=== PATIENT | male | born 1965 | race Caucasian/White ===

== ENCOUNTER 2020-02-16 14:32 | Outpatient (REF) | payer OTHER, SELFPAY | END 2020-02-16 14:33 | disposition home or self-care (01) | LOC: HO.LNP 14:32 | PROVIDERS: Visit Provider Internal Medicine | DX: Z20.822 Contact with and (suspected) exposure to COVID-19 (principal) | CPT/HCPCS: U0003 ==

== ENCOUNTER 2020-07-05 11:02 | Outpatient (REF) | payer OTHER, SELFPAY ==
[2020-07-05 12:04] LABS: MANUAL DIFF FLAG NO
[2020-07-05 12:08] LABS: Eosinophils Absolute Auto 0.1 X10*3/uL (0.0-0.4); Hematocrit 44.1 % (42-52); Hemoglobin 15.1 g/dl (14.0-18.0); Imm Gran Abs Auto 0.01 X10*3/uL (0.00-0.03); Imm Gran Pct Auto 0.2 % (0.0-0.4); Lymphocytes Absolute Auto 1.6 X10*3/uL (1.2-4.9); Lymphocytes Percent Auto 39.3 % (20-40); Mean Corpuscular HGB Conc 34.2 g/dl (31.0-36.0); Mean Corpuscular Hemoglobin 32.1 pg (27.0-33.0); Mean Corpuscular Volume 93.6 fL (80-98); Mean Platelet Volume 9.8 fL (9.4-12.4); Monocytes Absolute Auto 0.3 X10*3/uL (0.1-1.2); Monocytes Percent Auto 7.8 % (2-11); Neutrophils Percent Auto 49.7 % (45-73); Platelet Count 254 X10*3/uL (160-400); Red Blood Count 4.71 X10*6/uL (4.60-5.80); Red Cell Distribution Width 11.8 % (11.0-16.0); White Blood Count 4.1 X10*3/uL (4.8-10.8)
[2020-07-05 12:20] LABS: Alanine Aminotransferase 25 U/L (0-40); Albumin Level 4.5 g/dL (3.5-5.0); Alkaline Phosphatase 45 U/L (39-117); Anion Gap 13 (12-20); Aspartate Amino Transferase 17 U/L (5-37); Bilirubin Total 2.9 mg/dL (0.0-1.0); Blood Urea Nitrogen 15 mg/dL (9-16); Calcium 9.8 mg/dL (8.4-10.2); Carbon Dioxide 27 mmol/L (22-29); Chloride 106 mmol/L (96-108); Cholesterol 214 mg/dL; Estimated Glomerular Filt Rate > 60; Glucose Fasting 94 mg/dL (60-99); HDL Cholesterol 46 mg/dL; LDL Cholesterol Calculated 152 mg/dl; Potassium 4.4 mmol/L (3.3-5.1); Sodium 142 mmol/L (135-145); Triglycerides 82 mg/dL
[2020-07-05 12:41] LABS: Prostate Specific Antigen 1.29 ng/mL (<0.05-4.0)
== END 2020-07-05 11:03 | disposition home or self-care (01) ==
LOC: HO.LAB 11:02
PROVIDERS: PCP Internal Medicine; Visit Provider Internal Medicine
DX: Z00.00 Encounter for general adult medical examination without abnormal findings (principal); Z12.5 Encounter for screening for malignant neoplasm of prostate
CPT/HCPCS: 36415; 80053; 80061; 84153; 85025

== ENCOUNTER → 2020-10-13 14:50 | Outpatient (BNVA) | payer OTHER, SELFPAY | PROVIDERS: PCP Internal Medicine; Referring Provider Internal Medicine; Visit Provider Surgery ==

== ENCOUNTER 2020-10-21 06:10 | Day surgery (SDC) | payer OTHER, SELFPAY ==
--- NOTE | 2020-10-20 09:16 | HO.ANESPROP2 ---
Documented by User: Kusum Isaacs NP 10/20/20 09:17 HPI - Anesthesia Eval Consult details Narrative: 55yo M for Hernia Repair Inguinal with mesh PMFSH Active Problems Active Problems: All Active Problems (Updated 10/13/20 @ 15:24 by Alphonse Mancini MD) Right inguinal hernia (Acute) Chronic right hip pain (Acute) Past Medical History Medical History Chronic right hip pain Right inguinal hernia Surgical History Surgical History History of hip surgery Social History Social History Alcohol intake: never Patient Tobacco Use Status: Never used Tobacco Use of substances other than those prescribed or required for medical reasons: No Are you DNR?: No Advance Directives: No Advance Directives Information Provided: Yes Meds Allergies Allergy/AdvReac Type Severity Reaction Status Date / Time Penicillins Allergy Severe Unknown Verified 10/21/20 06:47 amoxicillin Allergy Unknown Verified 10/21/20 06:47 azithromycin Allergy Unknown Verified 10/21/20 06:47 naproxen Allergy Unknown Verified 10/21/20 06:47 Home Medications Medication Instructions Recorded Confirmed Last Taken Type loratadine 10 mg tablet (Claritin) 10 mg PO DAILY 10/13/20 10/13/20 Unknown History Exam Exam Date and Time: October 20, 202016 Pertinent Lab Results Pertinent Lab Results: Laboratory Tests 07/05/20 07/05/20 11:11 11:11 WBC 4.1 L Hgb 15.1 Hct 44.1 Plt Count 254 Sodium 142 Potassium 4.4 Chloride 106 Carbon Dioxide 27 BUN 15 Creatinine 1.00 Assessment and Plan Assessment Anesthesia Assessment: Chart Reviewed Documented by User: Jocelyn Quintero MD 10/21/20 07:21 HPI - Anesthesia Eval Consult details Narrative: 55yo M for Right Inguinal Hernia Repair with mesh PMFSH Past Medical History Medical History Chronic right hip pain Right inguinal hernia Family History Family history of problems with anesthesia: No Surgical History Surgical History History of hip surgery History of Problems with Anesthesia: No Social History Social History Alcohol intake: never Patient Tobacco Use Status: Never used Tobacco Use of substances other than those prescribed or required for medical reasons: No Are you DNR?: No Advance Directives: No Advance Directives Information Provided: Yes Meds Allergies Allergy/AdvReac Type Severity Reaction Status Date / Time Penicillins Allergy Severe Unknown Verified 10/21/20 06:47 amoxicillin Allergy Unknown Verified 10/21/20 06:47 azithromycin Allergy Unknown Verified 10/21/20 06:47 naproxen Allergy Unknown Verified 10/21/20 06:47 Home Medications Medication Instructions Recorded Confirmed Last Taken Type loratadine 10 mg tablet (Claritin) 10 mg PO DAILY 10/13/20 10/13/20 Unknown History Exam Airway Mallampati Class: II TM Dist: >3cm Neck ROM: Full Loose/Missing/Broken Teeth: No Heart: RRR Lungs: CTAB Assessment and Plan Assessment Anesthesia Assessment: Anesthesia Plan Discussed Final Anesthetic Review Family History of Problems with Anesthesia: No History of Problems with Anesthesia: No Final Preanesthetic Review: No Changes in Pt Med Stat, Meds/Allgs Chart Reviewed, Consent Obtained/Reviewed and Anes Risks/Benef Reviewed Patient Risk: Low Procedure Risk: Low Assessment/Block/Sedation in SS: Assess/Block/Sedation-SS Anesthetic Plan Anesthetic Plan: GA Disposition: Standard PACU
--- NOTE | 2020-10-20 11:56 | PC.NURSE ---
spoke to patient to verify medication allergies and reaction. pt stated pcn and amoxicillin allergy with unknown reaction as he has not taken them in a very long time . Preop antibiotic questioned to Dr. Mancini, Cefazolin 2gm IV ordered, per MD wishes to keep planned preop abx as ordered.
[2020-10-21] VITALS (11 sets, daily range): BP systolic 112–131; BP diastolic 65–79; PULSE 44–77; RESP 16–18; TEMP 36.1–36.3; O2SAT 97–100; BMI 23.3
[2020-10-21] MEDS: Lactated Ringers 1,000 ML 100 ML IVCONT (06:46)
--- NOTE | 2020-10-21 07:26 | MHC.SHP ---
Pre-Procedural Eval Section A Date of Service: 10/21/20 Section B Chief Complaint: inguinal hernia Allergies: Allergies Allergy/AdvReac Type Severity Reaction Status Date / Time Penicillins Allergy Severe Unknown Verified 10/21/20 06:47 amoxicillin Allergy Unknown Verified 10/21/20 06:47 azithromycin Allergy Unknown Verified 10/21/20 06:47 naproxen Allergy Unknown Verified 10/21/20 06:47 Plan I have reviewed the history and physical and performed a pertinent physical examination on my patient. No changes have occurred unless specified.
--- NOTE | 2020-10-21 08:00 | HO.ANESPROP2 ---
HPI - Anesthesia Eval Consult details Narrative: 55 yo male patient for Right Inguinal hernia repair with mesh PMFSH Active Problems Active Problems: All Active Problems (Updated 10/13/20 @ 15:24 by Alphonse Mancini MD) Right inguinal hernia (Acute) Chronic right hip pain (Acute) Past Medical History Medical History Chronic right hip pain Right inguinal hernia Family History Family history of problems with anesthesia: No Surgical History Surgical History History of hip surgery History of Problems with Anesthesia: No Social History Social History Alcohol intake: never Patient Tobacco Use Status: Never used Tobacco Use of substances other than those prescribed or required for medical reasons: No Are you DNR?: No Advance Directives: No Advance Directives Information Provided: Yes Meds Allergies Allergy/AdvReac Type Severity Reaction Status Date / Time Penicillins Allergy Severe Unknown Verified 10/21/20 06:47 amoxicillin Allergy Unknown Verified 10/21/20 06:47 azithromycin Allergy Unknown Verified 10/21/20 06:47 naproxen Allergy Unknown Verified 10/21/20 06:47 Active Medications: Current Medications Generic Name Dose Route Start Last Admin Trade Name Amarjitq PRN Reason Stop Dose Admin Acetaminophen 650 mg 10/21/20 07:21 Acetaminophen 325 Mg Tablet PO ONCE PRN Pain, Mild (Pain Scale 1-3) Fentanyl 25 mcg 10/21/20 07:21 Fentanyl Citrate/Pf 100 Mcg/2 Ml Vial IVPUSH Q5M PRN Pain, Moderate (Pain Scale 4-6 Protocol Lactated Ringer's 1,000 mls @ 100 mls/hr 10/21/20 06:00 10/21/20 06:46 Lr IVCONT 100 mls/hr .Q10H MAGNUS Administration Ondansetron HCl 4 mg 10/21/20 07:21 Ondansetron Hcl 4 Mg/2 Ml Vial IVPUSH ONCE PRN Nausea and Vomiting Oxycodone HCl 5 mg 10/21/20 07:21 Oxycodone Hcl Immed Release 5 Mg Tablet PO ONCE PRN Pain, Severe (Pain Scale 7-10) Home Medications Medication Instructions Recorded Confirmed Last Taken Type loratadine 10 mg tablet (Claritin) 10 mg PO DAILY 10/13/20 10/13/20 Unknown History Exam Exam Date and Time: October 21, 2020 0800 Height,Weight and Vital Signs: Height 6 ft Weight 78.018 kg Last Vital Signs Temp 97.3 F 10/21/20 06:20 Pulse 59 10/21/20 06:20 Resp 18 10/21/20 06:20 BP 113/65 10/21/20 06:20 Pulse Ox 100 10/21/20 06:20 Airway Mallampati Class: II TM Dist: >3cm Neck ROM: Full Heart: RRR Lungs: CTAB Assessment and Plan Assessment Anesthesia Assessment: Anesthesia Plan Discussed and Chart Reviewed Final Anesthetic Review Family History of Problems with Anesthesia: No History of Problems with Anesthesia: No NPO: Yes ASA Class: II Final Preanesthetic Review: No Changes in Pt Med Stat, Meds/Allgs Chart Reviewed, Consent Obtained/Reviewed and Anes Risks/Benef Reviewed Patient Risk: Low Procedure Risk: Low Assessment/Block/Sedation in SS: Assess/Block/Sedation-SS Anesthetic Plan Anesthetic Plan: GA Disposition: Standard PACU
--- NOTE | 2020-10-21 08:26 | W.PM.OPN ---
Operative Note Operative Note Date of Service: 10/21/20 Narrative: Preop Diagnosis: Right inguinal hernia Postop diagnosis: Right inguinal hernia, direct Procedure: Repair of right inguinal hernia with mesh Surgeon: Alphonse Mancini MD Inspector Final Assembly Electrical: DENIA Sweet student The patient is a 55-year-old male with a reducible mass on the right groin consistent with a right inguinal hernia. In view of symptoms, he wanted to proceed with repair. He understood the technique of the procedure. He was aware of the risks, benefits, and alternatives He was brought to the operating room and placed supine on table under general anesthesia via laryngeal mask airway. The right groin was prepped and draped in the usual sterile fashion. A surgical time-out was done. The patient received cefazolin 2 g IV preoperatively I infiltrated the planned line of incision using lidocaine 1%. I made a short incision on the skin along an imaginary line from the anterior superior iliac spine to the pubic ramus using blade 15. This was carried down through the full-thickness of the skin and subcutaneous fat using electrocautery until we reached the external oblique aponeurosis. Gently dissect the external oblique aponeurosis bluntly to expose the external ring. I then made incision on the fibers of the external oblique aponeurosis using blade 15 and this was extended inferomedially with an open tipped pair of scissors to connect with the external ring. The inguinal canal was therefore entered. I applied graspers on the edges of the divided external oblique aponeurosis. I bluntly dissected the underside to create space for the mesh. I then visualized the spermatic cord and its contents. I bluntly dissected this until was able to pass a Torito drain around this. The [place] drain was used for retraction. By retracting the spermatic cord, as able to visualize the sac. The hernia sac was actually on the floor of the canal and this was therefore an indirect hernia. I gently the entire sac from the rest of the cord contents. I identified the cord contents especially the vas deferens. This was protected during the entire dissection. I proceeded to gently define the sac to the floor and reduce this. I used a medium-sized plug to reinforce the floor and this was secured with Prolene 2-0 sutures to the shelving edge of the inguinal and laterally and the internal oblique superiorly and medially using the inner leaves of the plug. I then used a keyhole mesh and this was position on the floor of the dionicio. The tails of the mesh were passed around the cord at the level of the internal ring and were secured together with Prolene 2 sutures. I then secured the mesh with Prolene 2-0 suture to shelving edge of the inguinal and laterally and the internal oblique superiorly medially and the pubic ramus inferomedially. I then irrigated. I removed the Torito drain. Once hemostasis was ensured, I proceeded to then reappose the subcutaneous layer with Dexon 3-0 interrupted sutures. Skin closure was achieved with Dexon 4-0 subcuticular running stitch. The incision was infiltrated with Marcaine 0.5% for postop analgesia. Steri-Strips and dressings were applied. The procedure then completed The patient tolerated procedure well. There were no complications noted. Initial final counts of sponges and instruments were correct. Estimated blood loss about 10 cc The patient was then extubated without difficulty and transferred to the recovery room with stable vital signs.
--- NOTE | 2020-10-21 08:31 | P.BOP_ITS ---
Brief Operative Note Date of Service: 10/21/20 Pre-op diagnosis: Right inguinal hernia Post-op diagnosis: same Procedure: Repair of right hernia with mesh Implants: Mesh Surgeon: Alphonse Mancini MD Anesthesia: GLMA Was an Dental Equipment Technician used for this Procedure?: No Estimated blood loss (mL): 10 Pathology: none sent Condition: stable Disposition: PACU
[2020-10-21] MEDS: Acetaminophen 325 MG TABLET 650 MG PO (09:24)
[2020-10-21] MEDS: oxyCODONE HCl Immed Release 5 MG TABLET PO (09:25)
== END 2020-10-21 11:22 | disposition home or self-care (01) ==
PROVIDERS: PCP Internal Medicine; Visit Provider Surgery
PROC: (CPT 49505; principal; 2020-10-21 07:30)
DX: K40.90 Unilateral inguinal hernia, without obstruction or gangrene, not specified as recurrent (principal)
CPT/HCPCS: 49505; C1781; J0690; J1100; J2250; J2405; J3010

== ENCOUNTER 2020-10-25 15:15 | Outpatient (REF) | payer OTHER, SELFPAY ==
--- NOTE | 2020-10-25 15:21 | MHC.AU.ANR ---
Adult Audiological Evaluation Date of Visit: 10/25/20 Reason for Appointment: Audiological evaluation due to hearing concerns. Mr. Hobbs notes that ~one month ago he began experiencing distorted buzzing sounds when listening to his own voice. He states that when he speaks, it sounds distorted, muffled, and like there is buzzing or static in his ears, more so in the right ear. He finds it very bothersome and has a hard time regulating his own speech because of this. He states that many people have been asking him to repeat himself, and he feels like since his speech sounds distorted to him he is unable to monitor the volume and clarity of his own speech. 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 He does not notice this distortion to his hearing while others are speaking, only when he is speaking. He notes that particular sounds seem more distorted, typically constant sounds such as m and n . He feels he otherwise hears well. He denies any recent changes to his medical history that could be a contributing factor. 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 Medical History: Medical History (Other): Hernia surgery 10/21/20, Diagnosed with COVID-19 in February 2020, Hip fracture 2007, Pelvis fracture 1979, collar bone fracture 1976 Allergies: Seasonal allergies, penicillin, amoxicillin, azithromycin, naproxen Medication List: Percocet, pain medication Otoscopy: Right Ear: Partially occluded with cerumen Left Ear: Partially occluded with cerumen Tympanometry: Tympanometry performed due to: To assess integrity of the middle ear system Right Ear: Hypercompliant Middle Ear System (Type Ad) Left Ear: Hypercompliant Middle Ear System (Type Ad) Hearing Evaluation: Transducer(s) Used: Insert Earphones, Bone Conduction Method: Conventional Audiometry Stimuli Used: Pure Tones Right Ear: Description of Hearing: Normal hearing from 250-3000 Hz, sloping to a mild sensorineural hearing loss from 0153-5652 Hz, and rising to normal hearing at 8000 Hz. 25 dBHL conductive component at 1000 Hz. Hearing in the right ear is 10 dBHL worse than the left from 4444-5979 Hz. Left Ear: Description of Hearing: Normal hearing from 250-3000 Hz, sloping to a mild sensorineural hearing loss from 5157-5202 Hz, and a moderate hearing loss at 8000 Hz. 15 dBHL conductive component at 1000 Hz. Hearing in the left ear is 30 dBHL worse than the right at 8000 Hz. Speech Recognition Threshold (SRT): Method Used: Monitored Live Voice Stimuli Used: Spondee Words Right Ear: 10 dBHL Left Ear: 10 dBHL Word Discrimination: Method: Recorded Lists Word Lists Used: NU-6 Right Ear: 92% at 50 dBHL Left Ear: 100% at 50 dBHL Recommendations: Audiological re-evaluation in one year. Referral to Ear, Nose, and Throat is recommended to address distorted hearing, asymmetric hearing, conductive component, and cerumen build-up. Diagnosis: Primary Diagnosis: H90.3 Bilateral Sensorineural Hearing Loss Services Performed: Services Performed: Comprehensive Audiological Evaluation (CPT 15194) Tympanometry (CPT 84346) Signature: Provider: Paty Trivedi, CCC-A
== END 2020-10-25 15:16 | disposition home or self-care (01) ==
LOC: HO.SH 15:15
PROVIDERS: Visit Provider Internal Medicine
DX: H90.3 Sensorineural hearing loss, bilateral (principal)
CPT/HCPCS: 92557; 92567

== ENCOUNTER → 2020-10-31 11:49 | Outpatient (BNVA) | payer OTHER, SELFPAY | PROVIDERS: PCP Internal Medicine; Visit Provider Surgery ==

== ENCOUNTER 2020-12-06 08:56 | Day surgery (SDC) | payer OTHER, SELFPAY ==
[2020-11-30 10:32] VITALS: BMI 23.7
[2020-12-06] MEDS: Lactated Ringers 1,000 ML 50 ML IVCONT (09:00)
[2020-12-06 09:26] VITALS: BP 119/70; PULSE 58; RESP 16; TEMP 35.8; O2SAT 100
--- NOTE | 2020-12-06 09:34 | MHC.SHP ---
Pre-Procedural Eval Section A Date of Service: 12/06/20 Section B Chief Complaint: screening,hx of polyps Details of Present Illness: see H&P no changes Relevant Family History (Specify if Yes): No Relevant Social History: None Present Medications: see Short Stay Collaborative assessment History of Previous Operations: No relevant previous surgery Allergies: Allergies Allergy/AdvReac Type Severity Reaction Status Date / Time amoxicillin Allergy Unknown Unknown Verified 11/30/20 10:34 azithromycin Allergy Unknown Unknown Verified 11/30/20 10:34 naproxen Allergy Unknown Unknown Verified 11/30/20 10:34 Penicillins Allergy Unknown Unknown Verified 11/30/20 10:34 Review of Systems Sugical H&P ROS: Negative: Constitution, Cardiovascular, Respiratory, Neurological, Psychiatric, Hem-Onc, Allergic/Immunologic, Gastrointestinal, Genitourinary, Musculoskeletal, Integumentary, Endocrine and Eyes/Ears/Nose/Throat Exam Surgical H&P Exam: Normal: HEENT, Normal: Heart, Normal: Lungs, Normal: Extremities, Normal: Abdomen, Normal: Skin and Normal: Neurological Plan Diagnosis/Plan: Unchanged I have reviewed the history and physical and performed a pertinent physical examination on my patient. No changes have occurred unless specified.
--- NOTE | 2020-12-06 10:21 | PM.OP ---
Brief Operative Note Date of Service: 12/06/20 Pre-op diagnosis: screening Post-op diagnosis: same Procedure: colonoscopy Surgeon: Donnell Rivas Anesthesia: MAC Was an Field Account Manager used for this Procedure?: No Estimated blood loss (mL): 2 Pathology: other (polyps x2) Condition: stable Disposition: PACU
[2020-12-06 10:25] VITALS: BP 104/57; PULSE 66; RESP 16; TEMP 36.1; O2SAT 99
[2020-12-06 10:40] VITALS: BP 106/66; PULSE 53; RESP 17; TEMP 36.1; O2SAT 100
--- NOTE | 2020-12-06 10:50 | HO.ANESPROP2 ---
HPI - Anesthesia Eval Consult details Narrative: 55 male presenting for colonoscopy PMF Active Problems Active Problems: All Active Problems (Updated 11/30/20 @ 10:32 by Evelyn Quintero RN) Right inguinal hernia (Acute) Chronic right hip pain (Acute) Past Medical History Medical History Arthritis Chronic right hip pain History of COVID-19 Right inguinal hernia Family History Family history of problems with anesthesia: No Surgical History Surgical History H/O colonoscopy History of hip surgery History of right inguinal hernia repair History of Problems with Anesthesia: No Social History Social History Alcohol intake: never Patient Tobacco Use Status: Never used Tobacco Use of substances other than those prescribed or required for medical reasons: No Advance Directives Information Provided: Yes (informational brochure mailed) Advance Directives on File: No Meds Allergies Allergy/AdvReac Type Severity Reaction Status Date / Time amoxicillin Allergy Unknown Unknown Verified 11/30/20 10:34 azithromycin Allergy Unknown Unknown Verified 11/30/20 10:34 naproxen Allergy Unknown Unknown Verified 11/30/20 10:34 Penicillins Allergy Unknown Unknown Verified 11/30/20 10:34 Active Medications: Current Medications Lactated Ringer's (Lr) 1,000 mls @ 50 mls/hr IVCONT .Q20H MAGNUS Last Admin: 12/06/20 09:00 Dose: 50 mls/hr Documented by: Home Medications Medication Instructions Recorded Confirmed Last Taken Type loratadine 10 mg tablet (Claritin) 10 mg PO DAILY 10/13/20 10/31/20 Unknown History Exam Exam Date and Time: December 06, 2020 1050 Height,Weight and Vital Signs: Height 6 ft Weight 175 lb Last Vital Signs Temp 97.0 F 12/06/20 10:40 Pulse 53 12/06/20 10:40 Resp 17 12/06/20 10:40 BP 106/66 12/06/20 10:40 Pulse Ox 100 12/06/20 10:40 Airway Mallampati Class: I TM Dist: >3cm Neck ROM: Full Assessment and Plan Assessment Anesthesia Assessment: Anesthesia Plan Discussed and Chart Reviewed Final Anesthetic Review Family History of Problems with Anesthesia: No History of Problems with Anesthesia: No NPO: Yes ASA Class: I Final Preanesthetic Review: No Changes in Pt Med Stat, Meds/Allgs Chart Reviewed, Consent Obtained/Reviewed and Anes Risks/Benef Reviewed Patient Risk: Low Procedure Risk: Low Anesthetic Plan Anesthetic Plan: MAC: Disposition: Standard PACU
--- NOTE | 2020-12-06 13:05 | OP_ITS ---
SURGEON: Donnell Rivas MD INDICATIONS: Colon cancer screening and prior history of adenomatous colon polyps. PREOPERATIVE DIAGNOSIS: POSTOPERATIVE DIAGNOSIS: PROCEDURE PERFORMED: Colonoscopy to the terminal ileum with biopsy. ESTIMATED BLOOD LOSS: COMPLICATIONS: ANESTHESIA: ASSISTANTS: SPECIMENS: MEDICATIONS: Monitored anesthesia care. DESCRIPTION OF PROCEDURE: History and physical performed. The risks and benefits of the procedure were explained to the patient. Informed consent was obtained. The patient was placed in left lateral decubitus position. A digital rectal exam was performed and was found to be normal. The Olympus pediatric video colonoscope was introduced into the rectum and advanced to the cecum without difficulty. The cecum was identified by transillumination, palpation, and identification of ileocecal valve. Examination was performed and the scope was removed. He tolerated the procedure well and was taken to recovery area in stable condition. FINDINGS: The terminal ileum was normal. The visualized colonic mucosa was normal. The quality of the prep was good. Two polyps measuring less than 5 mm were removed with biopsy forceps. These were located at 70 cm and 40 cm. No other polyps were identified. Retroflexed examination showed small internal hemorrhoids. IMPRESSION: Colon polyps. RECOMMENDATION: Follow up the biopsy results. MD LATOSHA Nino/SANDRA / [id number]
== END 2020-12-06 11:24 | disposition home or self-care (01) ==
PROVIDERS: PCP Internal Medicine; Visit Provider Internal Medicine Gastroenterology
PROC: 0DJD8ZZ Inspection of Lower Intestinal Tract, Via Natural or Artificial Opening Endoscopic (ICD-10-PCS; CPT 45378; principal; 2020-12-06 09:50)
DX: Z12.11 Encounter for screening for malignant neoplasm of colon (principal); Z86.010 Personal history of colon polyps; D12.5 Benign neoplasm of sigmoid colon; K63.5 Polyp of colon; K64.8 Other hemorrhoids; M19.90 Unspecified osteoarthritis, unspecified site; Z86.16 Personal history of COVID-19; Z88.0 Allergy status to penicillin; Z88.8 Allergy status to other drugs, medicaments and biological substances
CPT/HCPCS: 45380; 88305

== ENCOUNTER 2021-02-24 10:02 | Outpatient (REF) | payer OTHER, SELFPAY ==
--- NOTE | ~2021-02-24 | XR_ITS ---
EXAMINATION: XR CHEST CLINICAL INFORMATION: Right shoulder pain. COMPARISON: Previous chest x-ray November 2017 TECHNIQUE: 2 views of the chest were obtained. FINDINGS: The cardiac and mediastinal contours are stable. The lungs are clear. There is no pleural effusion or pneumothorax. There is an old healed right posterior eighth rib fracture. There is an old healed left clavicle fracture. These findings are unchanged from prior exam. There are degenerative changes of the spine. XR/XR chest 2V IMPRESSION: No evidence for acute chest.
--- NOTE | ~2021-02-24 | XR_ITS ---
EXAMINATION: XR SHOULDER, RIGHT CLINICAL INFORMATION: Right shoulder pain COMPARISON: None TECHNIQUE: AP external rotation, Grashey, scapular Y, and axillary views of the right shoulder. FINDINGS: Normal alignment. No fracture. Mild acromioclavicular osteoarthritis. Small osteophyte along the inferior glenoid rim. XR/XR shoulder RT min 2V IMPRESSION: Mild acromioclavicular and minimal glenohumeral osteoarthritis.
[2021-02-24 10:28] LABS: MANUAL DIFF FLAG NO
[2021-02-24 11:22] LABS: Basophils Percent Auto 0.9 % (0-2); Eosinophils Absolute Auto 0.1 X10*3/uL (0.0-0.4); Hematocrit 48.4 % (42.0-52.0); Hemoglobin 16.7 g/dl (14.0-18.0); Imm Gran Abs Auto 0.01 X10*3/uL (0.00-0.03); Imm Gran Pct Auto 0.3 % (0.0-0.4); Lymphocytes Absolute Auto 1.4 X10*3/uL (1.2-4.9); Lymphocytes Percent Auto 40.6 % (20-40); Mean Corpuscular HGB Conc 34.5 g/dl (31.0-36.0); Mean Corpuscular Hemoglobin 30.9 pg (27.0-33.0); Mean Corpuscular Volume 89.5 fL (80.0-98.0); Mean Platelet Volume 9.8 fL (9.4-12.4); Monocytes Absolute Auto 0.3 X10*3/uL (0.1-1.2); Monocytes Percent Auto 7.5 % (2-11); Neutrophils Absolute Auto 1.7 x10*3/uL (2.0-8.3); Neutrophils Percent Auto 48.7 % (45-73); Platelet Count 294 X10*3/uL (160-400); Red Blood Count 5.41 X10*6/uL (4.60-5.80); Red Cell Distribution Width 12.3 % (11.0-16.0); White Blood Count 3.5 X10*3/uL (4.8-10.8)
[2021-02-24 11:51] LABS: Alanine Aminotransferase 11 U/L (0-40); Albumin Level 4.5 g/dL (3.5-5.0); Alkaline Phosphatase 68 U/L (39-117); Anion Gap 12 (12-20); Aspartate Amino Transferase 14 U/L (5-37); Bilirubin Total 1.8 mg/dL (0.0-1.0); Blood Urea Nitrogen 14 mg/dL (9-16); C Reactive Protein 0.05 mg/dL (< or = 0.50); Calcium 9.8 mg/dL (8.4-10.2); Carbon Dioxide 28 mmol/L (22-29); Chloride 106 mmol/L (96-108); Cholesterol 189 mg/dL; Estimated Glomerular Filt Rate > 60; Glucose Fasting 102 mg/dL (60-99); HDL Cholesterol 53 mg/dL; LDL Cholesterol Calculated 122 mg/dl; Potassium 4.2 mmol/L (3.3-5.1); Sodium 142 mmol/L (135-145); Total Protein 7.2 g/dL (6.5-8.0); Triglycerides 73 mg/dL
[2021-02-24 12:11] LABS: Free T4 (Free Thyroxine) 1.01 ng/dL (0.71-1.85); Thyroid Stimulating Hormone 0.71 uIU/mL (0.32-4.0)
[2021-02-24 12:25] LABS: Vitamin B12 224 pg/mL (200-900)
== END 2021-02-24 10:03 | disposition home or self-care (01) ==
LOC: HO.XRAY 10:02
PROVIDERS: PCP Internal Medicine; Visit Provider Internal Medicine
DX: M25.511 Pain in right shoulder (principal); R63.4 Abnormal weight loss; E78.00 Pure hypercholesterolemia, unspecified; Z86.010 Personal history of colon polyps
CPT/HCPCS: 36415; 71046; 73030; 80053; 80061; 82607; 84439; 84443; 85025; 86140

== ENCOUNTER 2021-05-11 11:06 | Outpatient (REF) | payer OTHER, SELFPAY ==
--- NOTE | ~2021-05-11 | XR_ITS ---
EXAMINATION: XR KNEE, RIGHT CLINICAL INFORMATION: Pain. Question arthritis. COMPARISON: None TECHNIQUE: Four views of the right knee. FINDINGS: Bone alignment is normal. No fracture or dislocation is seen. The femoral tibial joints are normal. There are small osteophytes at the patellofemoral joint. There are small osteophytes at the quadriceps tendon insertion to the patella and patellar tendon origin. There is no joint effusion. XR/XR knee RT 4V IMPRESSION: Mild degenerative changes at the patella.
== END 2021-05-11 11:07 | disposition home or self-care (01) ==
LOC: HO.XRAY 11:06
PROVIDERS: PCP Internal Medicine; Visit Provider Internal Medicine
DX: M79.604 Pain in right leg (principal); M25.511 Pain in right shoulder
CPT/HCPCS: 73564

== ENCOUNTER 2021-09-11 15:50 | Outpatient (REF) | payer MEDICAID, SELFPAY ==
[2021-09-11 16:05] LABS: MANUAL DIFF FLAG NO
[2021-09-11 17:47] LABS: Basophils Percent Auto 0.7 % (0-2); Eosinophils Absolute Auto 0.1 X10*3/uL (0.0-0.4); Hematocrit 41.3 % (42.0-52.0); Hemoglobin 14.5 g/dl (14.0-18.0); Imm Gran Abs Auto 0.01 X10*3/uL (0.00-0.03); Imm Gran Pct Auto 0.2 % (0.0-0.4); Lymphocytes Absolute Auto 1.7 X10*3/uL (1.2-4.9); Lymphocytes Percent Auto 30.7 % (20-40); Mean Corpuscular HGB Conc 35.1 g/dl (31.0-36.0); Mean Corpuscular Hemoglobin 31.3 pg (27.0-33.0); Mean Corpuscular Volume 89.2 fL (80.0-98.0); Mean Platelet Volume 9.6 fL (9.4-12.4); Monocytes Absolute Auto 0.4 X10*3/uL (0.1-1.2); Monocytes Percent Auto 6.9 % (2-11); Neutrophils Absolute Auto 3.3 x10*3/uL (2.0-8.3); Neutrophils Percent Auto 59.5 % (45-73); Platelet Count 259 X10*3/uL (160-400); Red Blood Count 4.63 X10*6/uL (4.60-5.80); Red Cell Distribution Width 12.8 % (11.0-16.0); White Blood Count 5.5 X10*3/uL (4.8-10.8)
[2021-09-11 18:17] LABS: Alanine Aminotransferase 9 U/L (0-40); Albumin Level 4.6 g/dL (3.5-5.0); Alkaline Phosphatase 52 U/L (39-117); Anion Gap 15 (12-20); Aspartate Amino Transferase 14 U/L (5-37); Bilirubin Total 3.3 mg/dL (0.0-1.0); Blood Urea Nitrogen 10 mg/dL (9-16); Calcium 9.4 mg/dL (8.4-10.2); Carbon Dioxide 26 mmol/L (22-29); Chloride 106 mmol/L (96-108); Estimated Glomerular Filt Rate > 60; Glucose Random 96 mg/dL (60-115); Potassium 4.1 mmol/L (3.3-5.1); Sodium 143 mmol/L (135-145)
[2021-09-11 18:42] LABS: Vitamin B12 196 pg/mL (200-900)
== END 2021-09-11 15:51 | disposition home or self-care (01) ==
LOC: HO.LAB 15:50
PROVIDERS: PCP Internal Medicine; Visit Provider Internal Medicine
DX: R63.4 Abnormal weight loss (principal); E53.8 Deficiency of other specified B group vitamins; Z86.010 Personal history of colon polyps
CPT/HCPCS: 36415; 80053; 82607; 85025

== ENCOUNTER 2021-10-05 08:00 | Outpatient (REF) | payer OTHER, SELFPAY | END 2021-10-05 08:01 | disposition home or self-care (01) | LOC: HO.HOSX 08:00 | PROVIDERS: Visit Provider Physician Assistant | DX: Z13.89 Encounter for screening for other disorder (principal) ==

== ENCOUNTER → 2021-11-14 12:33 | Outpatient (BNVA) | payer MEDICAID, SELFPAY | PROVIDERS: PCP Internal Medicine; Visit Provider Physician Assistant | DX: M75.21 Bicipital tendinitis, right shoulder (principal) | CPT/HCPCS: 20610; 99212; J1040 ==

== ENCOUNTER → 2022-03-21 15:13 | Outpatient (BNVA) | payer MEDICAID, SELFPAY | PROVIDERS: PCP Internal Medicine; Visit Provider Surgery | DX: L02.212 Cutaneous abscess of back [any part, except buttock and flank] (principal); L08.9 Local infection of the skin and subcutaneous tissue, unspecified; L72.0 Epidermal cyst | CPT/HCPCS: 10060; 10061; 99212 ==

== ENCOUNTER 2022-06-12 08:36 | Outpatient (REF) | payer MEDICAID, SELFPAY ==
--- NOTE | ~2022-06-12 | XR_ITS ---
EXAMINATION: XR SHOULDER, RIGHT CLINICAL INFORMATION: Pain. COMPARISON: None available. TECHNIQUE: AP external rotation, Grashey, scapular Y, and axillary views of the right shoulder. FINDINGS: The bones and soft tissues are normal. No fracture. Glenohumeral and acromioclavicular alignment is anatomic with normal joint space. No abnormal soft tissue calcifications. XR/XR shoulder RT min 2V IMPRESSION: Normal right shoulder.
== END 2022-06-12 08:37 | disposition home or self-care (01) ==
LOC: HO.HOSX 08:36
PROVIDERS: Visit Provider Physician Assistant
DX: M75.101 Unspecified rotator cuff tear or rupture of right shoulder, not specified as traumatic (principal); M75.21 Bicipital tendinitis, right shoulder
CPT/HCPCS: 73030; 99212

== ENCOUNTER 2022-07-11 09:30 | Outpatient (REF) | payer MEDICAID, SELFPAY ==
--- NOTE | ~2022-07-11 | MR_ITS ---
EXAMINATION: MR SHOULDER WITHOUT CONTRAST, RIGHT CLINICAL INFORMATION: Unspecified rotator cuff tear, right shoulder. Right shoulder pain. COMPARISON: Radiograph dated 06/12/2022 TECHNIQUE: MRI of the shoulder without contrast was performed on a high-field scanner. FINDINGS: ROTATOR CUFF: There is moderate focal tendinosis of the infraspinatus with a small 2 x 3 mm focus of interstitial partial tearing at the far anterior fibers. More mild subscapularis and supraspinatus tendinosis. No additional rotator cuff tears. No muscle atrophy or fatty infiltration. BICEPS: Normal. CORACOACROMIAL ARCH: The undersurface of the acromion is curved with no subacromial spur. [id number] acromioclavicular osteoarthritis. Mild subacromial subdeltoid bursitis. LABRUM/CAPSULE: Anteroinferior labrum is partially replaced by a small marginal osteophyte. Degenerative signal is suspected in this region between the anterior 3 o'clock position and anteroinferior 4 o'clock position. No discrete tears. Joint capsule is unremarkable. GLENOHUMERAL JOINT/MARROW: Small glenoid osteophytes. Articular cartilage appears relatively well-preserved. No fracture or malalignment. Subcortical cystic change and edema at the greater tuberosity are likely reactive to overlying tendinopathy. No joint effusion. MR/MR shoulder RT wo con IMPRESSION: 1. Moderate infraspinatus tendinosis with a small 2 x 3 mm concealed interstitial partial tear. No surfacing rotator cuff tears. More mild supraspinatus and subscapularis tendinosis. 2. [id number] acromioclavicular and minimal glenohumeral osteoarthritis. 3. Mild subacromial subdeltoid bursitis.
== END 2022-07-11 09:31 | disposition home or self-care (01) ==
LOC: HO.MRI 09:30
PROVIDERS: PCP Internal Medicine; Visit Provider Physician Assistant
DX: M75.101 Unspecified rotator cuff tear or rupture of right shoulder, not specified as traumatic (principal)
CPT/HCPCS: 73221

== ENCOUNTER → 2022-07-17 11:17 | Outpatient (BNVA) | payer MEDICAID, SELFPAY | PROVIDERS: PCP Internal Medicine; Visit Provider Physician Assistant | DX: M75.101 Unspecified rotator cuff tear or rupture of right shoulder, not specified as traumatic (principal); M75.21 Bicipital tendinitis, right shoulder | CPT/HCPCS: 99212 ==

== ENCOUNTER → 2022-08-02 11:09 | Outpatient (BNVA) | payer MEDICAID, SELFPAY | PROVIDERS: PCP Internal Medicine; Visit Provider Orthopaedic Surgery | DX: M75.101 Unspecified rotator cuff tear or rupture of right shoulder, not specified as traumatic (principal); S46.211A Strain of muscle, fascia and tendon of other parts of biceps, right arm, initial encounter | CPT/HCPCS: 99212 ==

== ENCOUNTER 2022-09-10 10:03 | Outpatient (AMB) | payer MEDICAID, SELFPAY ==
--- NOTE | 2022-09-10 10:19 | MHC.OFFVIS ---
Intake Vital Signs 09/10/22 10:26 Height 6 ft Weight 178 lb BMI 24.1 Intake Visit Reasons: Pre-Op RT BIC.TEN. poss.RTC repair 09/19/22NE Intake Note: Sylvester is a 57 year old male who presents today for a pre operative appointment as he is booked for a Right Bicep Tendon Repair with possible RTC repain on 09/19/22. Allergies amoxicillin Allergy (Unknown, Verified 09/10/22 10:25) Unknown azithromycin Allergy (Unknown, Verified 09/10/22 10:25) Unknown naproxen Allergy (Unknown, Verified 09/10/22 10:25) Unknown Penicillins Allergy (Unknown, Verified 09/10/22 10:25) Unknown HPI Pre-Op RT BIC.TEN. poss.RTC repair 09/19/22NE HPI Details Sylvester is a 57 year old man who presents to discuss his right shoulder surgery, DOS: 09/19/22. He denies any changes in his symptoms. He has failed conservative treatment options. He has anterior shoulder pain with reaching and overhead activities. Night pain varies. Pain with reaching can exacerbate a flair. He says his pain began in ~2005 when he was doing a job that involved using a hammer and chisel for long periods of time. 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 Review of Systems Const All systems reviewed & are unremarkable except as noted in HPI and below Physical Exam Vital Signs: BMI result Body Mass Index 24.1 Const General: no acute distress, alert and awake Orientation/consciousness: patient oriented x3 HEENT Head: Yes normocephalic and Yes atraumatic Eyes EOM: EOMs intact bilaterally Resp Effort & Inspection: normal respiratory effort and able to speak in complete sentences Cardio Jugular venous distension: no JVD Skin General skin exam: turgor normal Rashes: no rashes Neuro General: patient oriented x3 Extrem Other: Right Shoulder: Full ROM TTP over bicipital groove - empty can Psych Appearance: grossly normal Affect: normal affect Attitude: cooperative Results Reviewed Results Reviewed: I personally reviewed relevant MR images 1.? Moderate infraspinatus tendinosis with a small 2 x 3 mm concealed interstitial partial tear. No surfacing rotator cuff tears. More mild supraspinatus and subscapularis tendinosis. ? 2.? Tlag-ea-rnbblnqk acromioclavicular and minimal glenohumeral osteoarthritis. ? 3.? Mild subacromial subdeltoid bursitis. Assessment & Plan Assessment & Plan (1) Biceps tendon tear: Code(s): S46.219A - Strain of muscle, fascia and tendon of other parts of biceps, unspecified arm, initial encounter Plan: This is a 57 year old man with partial RTC tear and likely SLAP tear. He has pain with daily activity, worse overhead activity an at night. He found no relief from conservative treatment options and feels limited in his ADLs. I discussed his diagnosis and treatment options, including a tenodesis vs tenotomy. I recommend a right shoulder biceps tenodesis and possible RTC repair. He would prefer the tenodesis to tenotomy. I discussed the risks, benefits, and alternatives including, but not limited to, the risk of pain, infection, stiffness, need for further surgery as well as potential medical complications such as blood clots, pulmonary embolism and cardiac complications. I discussed the recovery timeline and process as well as the importance of PT. Sylvester is a good candidate for this surgery, and he wishes to proceed with this decision. This procedure is scheduled for 09/19/22. (2) Right rotator cuff tear: Code(s): M75.101 - Unspecified rotator cuff tear or rupture of right shoulder, not specified as traumatic Plan Scribed for Wilman Carbone MD by Campbell Stroud, medical office receptionist assistant, on 09/10/22 at 10:45 AM, EST. Coding Level of Care Code Global (91300) Diagnoses Biceps tendon tear S46.219A Right rotator cuff tear M75.101
[2022-09-10 10:26] VITALS: BMI 24.1
== END 2022-09-10 11:00 | disposition home or self-care (01) ==
PROVIDERS: PCP Internal Medicine; Visit Provider Orthopaedic Surgery
DX: S46.211A Strain of muscle, fascia and tendon of other parts of biceps, right arm, initial encounter (principal); M75.101 Unspecified rotator cuff tear or rupture of right shoulder, not specified as traumatic
CPT/HCPCS: 99024

== ENCOUNTER → 2022-09-10 10:03 | Outpatient (BNVA) | payer MEDICAID, SELFPAY | PROVIDERS: PCP Internal Medicine; Visit Provider Orthopaedic Surgery ==

== ENCOUNTER 2022-09-19 11:34 | Day surgery (SDC) | payer MEDICAID, SELFPAY ==
[2022-09-14 13:49] VITALS: BMI 24.1
--- NOTE | 2022-09-18 08:48 | HO.ANESPROP2 ---
Documented by User: Kusum Isaacs NP 09/18/22 08:48 HPI - Anesthesia Eval Consult details Narrative: 57yo M for Right Bicep Tendon Repair,poss Arthroscopic rotator cuff repair [facility] Active Problems Active Problems: All Active Problems (Updated 08/02/22 @ 11:50 by Campbell Stroud) Biceps tendonitis on right (Acute) Painful arc syndrome of right shoulder (Acute) Right rotator cuff tear (Acute) Biceps tendon tear (Acute) Infected epidermoid cyst (Acute) Abscess of back (Acute) Right inguinal hernia (Acute) Chronic right hip pain (Acute) Past Medical History Medical History (Updated 08/02/22 @ 11:50 by Campbell Stroud) Abscess of back Arthritis Chronic right hip pain History of COVID-19 Infected epidermoid cyst Right inguinal hernia Family History Family history of problems with anesthesia: No Surgical History Surgical History (Updated 09/14/22 @ 13:48 by Evelyn Quintero RN) H/O colonoscopy History of hip surgery History of right inguinal hernia repair History of Problems with Anesthesia: No Social History Social History (Updated 08/02/22 @ 11:19 by Gaviota Bird CMA) Alcohol intake: never Patient Tobacco Use Status: Never used Tobacco Current occupational status: employed 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 Meds Allergies Allergy/AdvReac Type Severity Reaction Status Date / Time amoxicillin Allergy Unknown Unknown Verified 09/10/22 10:25 azithromycin Allergy Unknown Unknown Verified 09/10/22 10:25 naproxen Allergy Unknown Unknown Verified 09/10/22 10:25 Penicillins Allergy Unknown Unknown Verified 09/10/22 10:25 Exam Exam Date and Time: September 18, 2022 0848 Height,Weight and Vital Signs: Height 6 ft Weight 80.739 kg Assessment and Plan Assessment Anesthesia Assessment: Chart Reviewed Final Anesthetic Review Family History of Problems with Anesthesia: No History of Problems with Anesthesia: No Documented by User: Anthony Saravia MD 09/19/22 11:12 PMFSH Past Medical History Medical History (Updated 08/02/22 @ 11:50 by Campbell Stroud) Abscess of back Arthritis Chronic right hip pain History of COVID-19 Infected epidermoid cyst Right inguinal hernia Surgical History Surgical History (Updated 09/14/22 @ 13:48 by Evelyn Quintero, WOODY) H/O colonoscopy History of hip surgery History of right inguinal hernia repair Social History Social History (Updated 08/02/22 @ 11:19 by Gaviota Bird CMA) Alcohol intake: never Patient Tobacco Use Status: Never used Tobacco Current occupational status: employed 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 Meds Allergies Allergy/AdvReac Type Severity Reaction Status Date / Time amoxicillin Allergy Unknown Unknown Verified 09/10/22 10:25 azithromycin Allergy Unknown Unknown Verified 09/10/22 10:25 naproxen Allergy Unknown Unknown Verified 09/10/22 10:25 Penicillins Allergy Unknown Unknown Verified 09/10/22 10:25 Exam Airway Mallampati Class: II TM Dist: >3cm Neck ROM: Limited Heart: rrr Lungs: cta Assessment and Plan Assessment Anesthesia Assessment: Anesthesia Plan Discussed Final Anesthetic Review NPO: Yes ASA Class: II Final Preanesthetic Review: No Changes in Pt Med Stat, Meds/Allgs Chart Reviewed, Consent Obtained/Reviewed and Anes Risks/Benef Reviewed Patient Risk: Intermediate Procedure Risk: Intermediate Anesthetic Plan Anesthetic Plan: GA, Regional Block and Agree w/ Assess. and Plan Disposition: Standard PACU
[2022-09-19] VITALS (7 sets, daily range): BP systolic 108–130; BP diastolic 57–74; PULSE 53–70; RESP 16–18; TEMP 36.1–36.5; O2SAT 95–100; BMI 22.5
--- NOTE | 2022-09-19 12:16 | MHC.SHP ---
Pre-Procedural Eval Section A Date of Service: 09/19/22 The patient is an INPATIENT: No Changes since office visit: No Cold of Flu in the past 2 weeks, No New Medical Problems, No Changes in Medication and No Patient answered all questions The History & Physical has been completed within 30 days and I have reviewed it.: Yes Section B Chief Complaint: Strain of muscle, fascia and tendon,rotator cuff Allergies: Allergies Allergy/AdvReac Type Severity Reaction Status Date / Time amoxicillin Allergy Unknown Unknown Verified 09/10/22 10:25 azithromycin Allergy Unknown Unknown Verified 09/10/22 10:25 naproxen Allergy Unknown Unknown Verified 09/10/22 10:25 Penicillins Allergy Unknown Unknown Verified 09/10/22 10:25 Plan I have reviewed the history and physical and performed a pertinent physical examination on my patient. No changes have occurred unless specified. Time Spent With Patient Time: Total time managing care of this patient today ____ minutes.
--- NOTE | 2022-09-19 14:19 | PM.OP ---
Brief Operative Note Date of Service: 09/19/22 Pre-op diagnosis: left rtc tear Post-op diagnosis: same Procedure: Left rtc repair Implants: Richter and nephew helacoil x3 Surgeon: Wilman Carbone MD Anesthesia: GETA and regional Was an Feeder Catcher Tobacco used for this Procedure?: Yes Feeder Catcher Tobacco: Kijnal Saavedra Estimated blood loss (mL): 10 IV fluids (mL): 1,000 Pathology: none sent Condition: stable Disposition: PACU
--- NOTE | 2022-09-28 15:03 | P.OP_ITS ---
Operative Note Operative Note Date of Service: 09/19/22 Narrative: Date of Service: 09/19/22 Pre-op diagnosis: left rtc tear Post-op diagnosis: same Procedure: Left rtc repair Implants: Richter and nephew helacoil x3 Surgeon: Wilman Carbone MD Anesthesia: GETA and regional Was an Odd Ticket Clerk used for this Procedure?: Yes Odd Ticket Clerk: Kinjal Saavedra Estimated blood loss (mL): 10 IV fluids (mL): 1,000 Pathology: none sent Condition: stable Disposition: PACU Procedure in detail: Patient was brought to the operating room and placed the the beach chair position. All bony prominences were well padded and the limb was prepped and draped in standard sterile fashion. A time out was called to identify proper site, proper procedure and proper surgeon. IV antibiotics per weight were administered. I began by making a posterolateral stab incision with a 15 blade. A blunt trochar was placed into the glenohumeral joint and I insufflated the joint with saline and a 30 degree arthroscope was placed. I established an outside- in anterior portal just distal to the biceps tendon. I then began my inspection of the glenohumeral joint. The glenohumeral surfaces were normal and the biceps anchor wasn intact with mild anterior interval synovitis. The subscapularis was intact as was the entirety of the biceps apart from mild snyovitis. There was a full thickness undersurface RTC tear involving prodemonanatly the suprspinatus. I removed the trochar and entered the subacromial space. A direct lateral portal was then established and I performed a bursectomy. The cuff was then examined. The bursal fibers of the RTC were present but with minimal debridement revealed a full thickness tear of the supra and infraspinatus without retraction. The tear was mobile. I then placed two medial row double loaded anchors and then brought the suture tape through the medial cuff. I then debrided the bare area down to bleeding bone and, using a cross bridge configuration, brought three limbs to each of two lateral 5.0 anchors. This re-approximated the cuff anatomy near anatomically. I then performed a 5 mm subacromial decompression. Once I was satisfied with the repair final images were captured and I removed all instrumentation. Portals were closed with nylon. Patient was placed in an abduct ion sling, extubated and brought to the recovery room in stable condition. There were no known complications.
== END 2022-09-19 15:46 | disposition home or self-care (01) ==
LOC: HO.SSS 11:35
PROVIDERS: PCP Internal Medicine; Visit Provider Orthopaedic Surgery
PROC: (CPT 24341; principal; 2022-09-19 13:20)
DX: M75.101 Unspecified rotator cuff tear or rupture of right shoulder, not specified as traumatic (principal); S46.211A Strain of muscle, fascia and tendon of other parts of biceps, right arm, initial encounter; M19.011 Primary osteoarthritis, right shoulder; M65.811 Other synovitis and tenosynovitis, right shoulder; M75.51 Bursitis of right shoulder; X58.XXXA Exposure to other specified factors, initial encounter; Y93.9 Activity, unspecified; Y92.9 Unspecified place or not applicable; Y99.8 Other external cause status; Z88.0 Allergy status to penicillin; Z88.1 Allergy status to other antibiotic agents; Z88.8 Allergy status to other drugs, medicaments and biological substances; Z98.890 Other specified postprocedural states
CPT/HCPCS: 29827; 29826; C1713; J0131; J0171; J0690; J1100; J1885; J2405; J2795

== ENCOUNTER → 2022-09-19 11:34 | Outpatient (BNV) | payer MEDICAID, SELFPAY | PROVIDERS: PCP Internal Medicine; Visit Provider Orthopaedic Surgery | DX: M75.122 Complete rotator cuff tear or rupture of left shoulder, not specified as traumatic (principal) | CPT/HCPCS: 29826; 29827 ==

== ENCOUNTER 2022-09-24 09:40 | Outpatient (AMB) | payer MEDICAID, SELFPAY ==
--- NOTE | 2022-09-24 09:55 | MHC.OFFVIS ---
Intake Vital Signs 09/24/22 10:00 Height 6 ft Weight 167 lb BMI 22.6 Handedness Right Intake Visit Reasons: PO RT BIC.TEN. poss.RTC repair 09/19/22NE Intake Note: Sylvester is a 57 year old male who presents today for a post operative appointment as he is booked for a Right Bicep Tendon Repair with possible RTC repain on 09/19/22. Patient reports having pain at the end of the day. He states his pain is worse at night and had to take some medication to help him sleep. Allergies amoxicillin Allergy (Unknown, Verified 09/24/22 09:56) Unknown azithromycin Allergy (Unknown, Verified 09/24/22 09:56) Unknown naproxen Allergy (Unknown, Verified 09/24/22 09:56) Unknown Penicillins Allergy (Unknown, Verified 09/24/22 09:56) Unknown HPI PO RT BIC.TEN. poss.RTC repair 09/19/22NE HPI Details 57-year-old male who presents in the office today 5 days status post left rotator cuff repair, which was performed on 09/19/[address] Carbone. The patient reports some pain at the end of the day and at night. He will take some medication for this. 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 Sutures intact. No surrounding erythema or drainage. No signs of infection. Forward flexion and abduction to 45 degrees. External rotation to neutral. NVI. Assessment & Plan Assessment & Plan (1) Status post right rotator cuff repair: Comment: 09/19/2022 NE Code(s): Z98.890 - Other specified postprocedural states Plan Mr. Hobbs is a 57-year-old male who presents in the office today 5 days status post left rotator cuff repair, which was performed on 09/19/[address] Carbone. The patient reports some pain at the end of the day and at night. He will take some medication for this. Sutures were removed and steri-stripes were applied. He will remain in the slings for 6 weeks post-op. He will be referred to physical therapy to begin to work on the left shoulder. Follow up will be in 4 weeks, or sooner if needed. Patient Instructions: Scribed for Kinjal Saavedra PA-C by Mary Hudson medical psychotherapist, on 09/24/2022 at 9:47 am, EST. Coding Level of Care Code Global (11655) Diagnoses Status post right rotator cuff repair Z98.890
[2022-09-24 10:00] VITALS: BMI 22.6
== END 2022-09-24 10:35 | disposition home or self-care (01) ==
PROVIDERS: PCP Internal Medicine; Visit Provider Physician Assistant
DX: Z98.890 Other specified postprocedural states (principal)
CPT/HCPCS: 99024

== ENCOUNTER → 2022-09-24 09:40 | Outpatient (BNVA) | payer MEDICAID, SELFPAY | PROVIDERS: PCP Internal Medicine; Visit Provider Physician Assistant ==

== ENCOUNTER 2022-10-22 14:27 | Outpatient (AMB) | payer MEDICAID, SELFPAY ==
--- NOTE | 2022-10-22 14:28 | MHC.OFFVIS ---
Intake Intake Visit Reasons: PO RT BIC.TEN. poss.RTC repair 09/19/22NE Intake Note: Sylvester is a 57 year old male who presents today for a post operative appointment as he is booked for a Right Bicep Tendon Repair with possible RTC repair on 09/19/22. He reports minimal pain and is using cold therapy as needed. He continues to work with physical therapy and reports that it is going very well. He continues to wear his sling. Allergies amoxicillin Allergy (Unknown, Verified 10/22/22 14:31) Unknown azithromycin Allergy (Unknown, Verified 10/22/22 14:31) Unknown naproxen Allergy (Unknown, Verified 10/22/22 14:31) Unknown Penicillins Allergy (Unknown, Verified 10/22/22 14:31) Unknown Medication List - Last Reconciled 10/22/22 by Darlin Lua RN morphine ER (MS Contin) 15 mg PO Q12H 3 days oxycodone-acetaminophen 5-325 mg 1 tab PO Q4-6H PRN 7 days HPI PO RT BIC.TEN. poss.RTC repair 09/19/22NE HPI Details Surgery ~4 weeks ago. No complaints. Doing PT. Wearing sling. 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 Doing well. PT. Reviewed surgery and prognosis. f/u 4 weeks. Coding Level of Care Code Global (06104) Diagnoses Status post right rotator cuff repair Z98.890
== END 2022-10-22 15:14 | disposition home or self-care (01) ==
PROVIDERS: PCP Internal Medicine; Visit Provider Orthopaedic Surgery
DX: Z98.890 Other specified postprocedural states (principal)
CPT/HCPCS: 99024

== ENCOUNTER → 2022-10-22 14:27 | Outpatient (BNVA) | payer MEDICAID, SELFPAY | PROVIDERS: PCP Internal Medicine; Visit Provider Orthopaedic Surgery ==

== ENCOUNTER 2022-11-22 14:25 | Outpatient (AMB) | payer MEDICAID, SELFPAY ==
--- NOTE | 2022-11-22 14:27 | A.OFFVIS_ITS ---
Intake Vital Signs 11/22/22 14:29 Height 6 ft Weight 167 lb BMI 22.6 Intake Visit Reasons: PO RT BIC.TEN. poss.RTC repair 09/19/22NE Intake Note: Sylvester is a 57 year old right hand dominant male who presents today for a post operative appointment s/p Right Biceps Tenotomy with RTC Repair 09/19/22. Patient reports that he is doing well, he has some mild clicking when he makes across the body movement. He has increased pain by the end of the day, of which he does not take anything for. Denies numbness and tingling Allergies amoxicillin Allergy (Unknown, Verified 10/22/22 14:31) Unknown azithromycin Allergy (Unknown, Verified 10/22/22 14:31) Unknown naproxen Allergy (Unknown, Verified 10/22/22 14:31) Unknown Penicillins Allergy (Unknown, Verified 10/22/22 14:31) Unknown HPI PO RT BIC.TEN. poss.RTC repair 09/19/22NE HPI Details Sylvester is a 57 year old man who presents ~2 months S/P right RTC repair. He says he is doing well and has been attending PT. He complains of increased pain at the end of the day, but says this is mild & tolerable, and he denies taking any medication for this. He says this pain was similar to before surgery but is improving every day . He has a clicking sensation with cross-body reaching, but says this is not painful. He is surprised by how weak his arm feels right now. He denies any numbness or tingling. 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 Review of Systems Const All systems reviewed & are unremarkable except as noted in HPI and below Physical Exam Vital Signs: BMI result Body Mass Index 22.6 Const General: no acute distress, alert and awake Orientation/consciousness: patient oriented x3 HEENT Head: Yes normocephalic and Yes atraumatic Eyes EOM: EOMs intact bilaterally Resp Effort & Inspection: normal respiratory effort and able to speak in complete sentences Cardio Jugular venous distension: no JVD Skin General skin exam: turgor normal Rashes: no rashes Neuro General: patient oriented x3 Extrem Other: Right Shoulder: Well-healed portals NVI 40/90 Psych Appearance: grossly normal Affect: normal affect Attitude: cooperative Assessment & Plan Assessment & Plan (1) Status post right rotator cuff repair: Comment: 09/19/2022 NE Code(s): Z98.890 - Other specified postprocedural states Plan: This is a 57 year old man S/P right RTC repair, DOS: 09/19/22. He is doing well overall, his pain is improving daily and is tolerable, and has been attending PT. I recommend he continue with PT and avoid any heavy lifting or overhead activities. He will be mindful to not push through pain. He will follow up in 6 weeks. Plan Scribed for Wilman Carbone MD by Campbell Stroud, certified medical coding specialist, on 11/22/22 at 3:00 PM, EST. Coding Level of Care Code Global (09293) Diagnoses Status post right rotator cuff repair Z98.890
[2022-11-22 14:29] VITALS: BMI 22.6
== END 2022-11-22 15:10 | disposition home or self-care (01) ==
PROVIDERS: PCP Internal Medicine; Visit Provider Orthopaedic Surgery
DX: Z98.890 Other specified postprocedural states (principal)
CPT/HCPCS: 99024

== ENCOUNTER → 2022-11-22 14:25 | Outpatient (BNVA) | payer MEDICAID, SELFPAY | PROVIDERS: PCP Internal Medicine; Visit Provider Orthopaedic Surgery ==

== ENCOUNTER 2022-12-26 11:00 | Outpatient (RCR) | payer MEDICAID, SELFPAY ==
--- NOTE | 2022-09-26 13:33 | MHC.PT.EP ---
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 REPORTS WAS SHOWN PENDULUM EXS PO. PRESENTS TO PT WITH LIMITED R SHLDER ROM AND STRENGTH WITH PAIN AND LIMITED USE OF R UE. 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 SHOULD BENEFIT FROM PT TO ADDRESS SHLDER ISSUES Frequency and Duration: The patient will be seen 1X/WK X 4 WKS THEN 2X/WK X 6 WKS Short Term Goals: 1. INCREASED POSTURE AWARENESS AND AWARENESS SHLDER CARE 2. FULL PROM R SHLDER Cupola Patcher Helper Goals: 1. R SHLDER AROM FLEX TO 160, ABD TO 150, ER TO 80 2. DECREASED R SHLDER PAIN AT LEAST 50% WITH ADLS 3. R SHLDER STRENGTH AT LEAST 4/5 T/O 4. I HEP WITH DC EX PLAN Treatment Plan: Modalities to reduce pain, spasms and effusion. Manual therapy to restore motion and function. Therapeutic exercise to improve strength and flexibility. Neuromuscular re-education for posture and balance. Therapeutic activities to return to functional activities of daily living. Electronically signed by: SCARLETT MURRIETA PT Please sign and return to therapist. Thank you for your referral.
--- NOTE | 2023-01-09 15:18 | MHC.PT.DC ---
[facility] [place] Office [place] Office [place] Office [address] Yinka Celestin [address] [phone] F: [phone] F: [phone] F: [phone] F: [phone] Physical Therapy Discharge Report Diagnosis: R RC REPAIR (INFRASPINATUS AND SUPRASPINATUS PER TIGERTEXT FROM DR CHICAS) Date of Surgery: 09/19/22 Date of Evaluation: 09/26/22 Date of Discharge: 01/09/23 Treatments to Date: 16 Cancellations to Date: No Shows to Date: Discharge Status: Improved Function Independent with HEP Discharge Summary: HAS MET MOST PT GOALS. TO SEE DR CHICAS ON SATURDAY (TO CALL AFTER RE PROBABLE DC FROM PT) THIS PT SPOKE WITH Pt RE DC. REPORTS CLEARED FOR DC (CONT WITH EXS) BY DR CHICAS WITH A 6 MONTH FU Electronically signed by: SCARLETT MURRIETA PT Please sign and return to therapist. Thank you for your referral.
== END 2023-01-09 15:20 ==
LOC: HO.PTWFD 11:00
PROVIDERS: PCP Internal Medicine; Visit Provider Physician Assistant
DX: Z98.890 Other specified postprocedural states (principal)
CPT/HCPCS: 97110; 97140; 97162; 97535

== ENCOUNTER 2022-12-31 13:32 | Outpatient (AMB) | payer MEDICAID, SELFPAY ==
--- NOTE | 2022-12-31 13:38 | MHC.OFFVIS ---
Intake Vital Signs 12/31/22 13:40 Height 6 ft Weight 167 lb BMI 22.6 Intake Visit Reasons: OV-RT BIC.TEN. poss.RTC repair 09/19/22NE Intake Note: Sylvester is a 57 year old right hand dominant male who presents today for a post operative appointment s/p Right Biceps Tenotomy with RTC Repair 09/19/22. Patient reports that he is feeling pain/discomfort at the end of the day. denies numbness and tingling. Allergies amoxicillin Allergy (Unknown, Verified 10/22/22 14:31) Unknown azithromycin Allergy (Unknown, Verified 10/22/22 14:31) Unknown naproxen Allergy (Unknown, Verified 10/22/22 14:31) Unknown Penicillins Allergy (Unknown, Verified 10/22/22 14:31) Unknown HPI OV-RT BIC.TEN. poss.RTC repair 09/19/22NE HPI Details Sylvester is a 57 year old man who presents ~3 1/2 months S/P right RTC repair. He says he is doing well and has been attending PT. He complains of increased pain at the end of the day, but says this is mild & tolerable, and he denies taking any medication for this. He has a clicking sensation with cross-body reaching, but says this is not painful. He is surprised by how weak his arm feels right now. He denies any numbness or tingling. 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 Review of Systems Const All systems reviewed & are unremarkable except as noted in HPI and below Physical Exam Vital Signs: BMI result Body Mass Index 22.6 Const General: no acute distress, alert and awake Orientation/consciousness: patient oriented x3 HEENT Head: Yes normocephalic and Yes atraumatic Eyes EOM: EOMs intact bilaterally Resp Effort & Inspection: normal respiratory effort and able to speak in complete sentences Cardio Jugular venous distension: no JVD Skin General skin exam: turgor normal Rashes: no rashes Neuro General: patient oriented x3 Extrem Other: Right Shoulder: Well-healed portals NVI 40/90 Psych Appearance: grossly normal Affect: normal affect Attitude: cooperative Assessment & Plan Assessment & Plan (1) Status post right rotator cuff repair: Comment: 09/19/2022 NE Code(s): Z98.890 - Other specified postprocedural states Plan: This is a 57 year old man S/P right RTC repair, DOS: 09/19/22. He is doing well overall, his pain is improving daily and is tolerable, and has been attending PT. I recommend he continue with PT and avoid any heavy lifting or overhead activities. He should ice his shoulder frequently, prn to help with inflammation control. He will be mindful to not push through pain. He will follow up in 3 months. Plan Scribed for Wilman Carbone MD by Campbell Stroud medical office assistant, on 12/31/22 at 2:05 PM, EST. Coding Level of Care Code Global (65431) Diagnoses Status post right rotator cuff repair Z98.890
[2022-12-31 13:40] VITALS: BMI 22.6
== END 2022-12-31 14:06 | disposition home or self-care (01) ==
PROVIDERS: PCP Internal Medicine; Visit Provider Orthopaedic Surgery
DX: M75.122 Complete rotator cuff tear or rupture of left shoulder, not specified as traumatic (principal)
CPT/HCPCS: 99213

== ENCOUNTER → 2022-12-31 13:32 | Outpatient (BNVA) | payer MEDICAID, SELFPAY | PROVIDERS: PCP Internal Medicine; Visit Provider Orthopaedic Surgery | DX: Z98.890 Other specified postprocedural states (principal) | CPT/HCPCS: 99212 ==

== ENCOUNTER 2023-04-08 13:18 | Outpatient (AMB) | payer MEDICAID, SELFPAY ==
--- NOTE | 2023-04-08 13:28 | MHC.OFFVIS ---
Intake Intake Visit Reasons: OV-RT BIC.TEN. poss.RTC repair 09/19/22NE Intake Note: Sylvester is a 58 year old male who presents to the office today for RT BIC. TEN.Poss. RTC repair 09/19/22. Pt states he is having severe pain in his right bicep especially when put his arm out in front of his body. Pt states he has tried ice to relieve the pain which only helps a little. Allergies amoxicillin Allergy (Unknown, Verified 04/08/23 13:28) Unknown azithromycin Allergy (Unknown, Verified 04/08/23 13:28) Unknown naproxen Allergy (Unknown, Verified 04/08/23 13:28) Unknown Penicillins Allergy (Unknown, Verified 04/08/23 13:28) Unknown HPI OV-RT BIC.TEN. poss.RTC repair 09/19/22NE HPI Details Sylvester is a 57 year old man who presents ~6 1/2 months S/P right RTC repair. He complains of worsening pain in his right biceps. He says this is worse with forward reaching motions. This pain is similar to the pain he had prior to surgery. It has been recently made worse by hanging sheetrock. 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 Resp Other: No audible wheezing Effort & Inspection: normal respiratory effort and able to speak in complete sentences Cardio Other: Radial pulse palpable with no rythmic abnormalities Jugular venous distension: no JVD Back/Spine/Pelvis Cervical Spine: normal cervical lordosis Skin General skin exam: turgor normal Rashes: no rashes Neuro General: patient oriented x3 Extrem Other: Well healed portals right shoulder neg EC TTP over the bicipital groove negative lift off Psych Appearance: grossly normal Mental Status: mental status grossly normal Speech and movement: Normal speech and movement present Affect: normal affect Attitude: cooperative Assessment & Plan Assessment & Plan (1) Biceps tendonitis on right: Code(s): M75.21 - Bicipital tendinitis, right shoulder Plan: Sylvester is a 58 yo M with bicipital tendonitis. I reviewed his pre operative MRI and his intra-operative pictures. He had a large full thickness RTC tear and his biceps appeared normal. Unfortunately he continues to have anterior shoulder/pain in the bicip[ital groove. I do think this has been made worse by recent [employer] work. I discussed options with him and , at this time, we decided to try an ultrasound guided injection of the right bicipital groove. Plan Prepared for Wilman Carbone MD by Campbell Stroud, director medical, on 04/08/23 at 1:33 PM, EST. Orders: Referrals Pain Management Referral M75.21 - Bicipital tendinitis, right shoulder Coding Level of Care Code Est Pt Level 3 (07474) Diagnoses Biceps tendonitis on right M75.21
== END 2023-04-08 14:12 | disposition home or self-care (01) ==
PROVIDERS: PCP Internal Medicine; Visit Provider Orthopaedic Surgery
DX: M75.21 Bicipital tendinitis, right shoulder (principal)
CPT/HCPCS: 99213

== ENCOUNTER → 2023-04-08 13:18 | Outpatient (BNVA) | payer MEDICAID, SELFPAY | PROVIDERS: PCP Internal Medicine; Visit Provider Orthopaedic Surgery | DX: M75.21 Bicipital tendinitis, right shoulder (principal) | CPT/HCPCS: 99212 ==

== ENCOUNTER 2023-04-15 09:35 | Outpatient (AMB) | payer MEDICAID, SELFPAY ==
[2023-04-15 09:38] VITALS: BP 112/68; PULSE 57; RESP 12; O2SAT 100; BMI 23.1
--- NOTE | 2023-04-15 09:38 | MHC.OFFVIS ---
Intake Vital Signs 04/15/23 09:38 Height 6 ft Weight 170 lb BMI 23.1 BP 112/68 Blood Pressure Location Rt brachial Position Sitting Respiration 12 Pulse 57 Pulse Source Pulse Oximeter Pulse Oximetry (%) 100 Oxygen Delivery Method Room Air Intake Visit Reasons: INJ right bicipital groove with US guidance Allergies amoxicillin Allergy (Unknown, Verified 04/15/23 09:42) Unknown azithromycin Allergy (Unknown, Verified 04/15/23 09:42) Unknown naproxen Allergy (Unknown, Verified 04/15/23 09:42) Unknown Penicillins Allergy (Unknown, Verified 04/15/23 09:42) Unknown Medication List - Last Reconciled 04/15/23 by Gisela Torres LPN No Known Home Meds HPI INJ right bicipital groove with US guidance HPI Details 58-year-old male who presents today to the office for a right bicipital groove injection with US guidance. Denies any recent cough, cold, infection, fever or other significant changes in medical history since last office visit. 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 Alert and oriented. Mood and affect appropriate. Follows and participates in conversation appropriately. Respiratory effort is unlabored. Able to transition from sit to stand unassisted. Ambulates with bilaterally normal heel strike and toe off. Office Procedures Joint Injection/Drain Joint Injection/Drain Details: Right bicipital groove and tendon injection under ultrasound guidance Primary Site: right shoulder Prep: site was prepped using sterile technique Injected: 40 mg of, Kenalog, with 3 mL of (0.25% ropivacaine) and other (bicipital groove, Right) Approach Used: anterior Procedure: The patient tolerated the procedure well Coding Details: Note: An ultrasound image of the injection was taken and stored in the permanent record. - Bicipital Groove Injection (Right, US guided) Procedure code (CPT) selection complete Results Reviewed Results Reviewed: No imaging is available for review. Assessment & Plan Assessment & Plan (1) Biceps tendonitis on right: Code(s): M75.21 - Bicipital tendinitis, right shoulder Plan Patient is status post right bicipital groove and tendons injection under ultrasound guidance. Patient tolerated procedure well and was discharged home in stable condition with discharge instructions. All questions were answered. The patient will follow up with us if he does not get significant relief from the procedure, and we will be calling to discuss further strategies that may be indicated. Scribed for Dr. Gutierrez by Nate Morrissey, medical data analyst, on 04/15/2023. I, Dr. Gutierrez, have personally reviewed and agree with the information entered by the scribe. Coding Level of Care Code Procedure Only Diagnoses Biceps tendonitis on right M75.21 CPT Codes Coding - Joint 1: 39208 - Bicipital Groove Injection ([id number])
== END 2023-04-15 09:59 | disposition home or self-care (01) ==
LOC: HO.PMC 09:35
PROVIDERS: PCP Internal Medicine; Referring Provider Orthopaedic Surgery; Visit Provider Internal Medicine
DX: M75.21 Bicipital tendinitis, right shoulder (principal)
CPT/HCPCS: 20550

== ENCOUNTER → 2023-04-15 09:35 | Outpatient (BNVA) | payer MEDICAID, SELFPAY | PROVIDERS: PCP Internal Medicine; Referring Provider Orthopaedic Surgery; Visit Provider Internal Medicine | DX: M75.21 Bicipital tendinitis, right shoulder (principal) | CPT/HCPCS: 20550; J2795; J3301 ==

== ENCOUNTER 2023-12-04 08:48 | Outpatient (AMB) | payer BC, MEDICAID, SELFPAY ==
[2023-12-04 08:59] VITALS: BP 127/69; PULSE 55; RESP 15; O2SAT 100; BMI 23.1
--- NOTE | 2023-12-04 08:59 | MHC.OFFVIS ---
Vital Signs 12/04/23 08:59 Height 6 ft Weight 170 lb BMI 23.1 BP 127/69 Blood Pressure Location Lt brachial Position Sitting Respiration 15 Pulse 55 Pulse Source Pulse Oximeter Pulse Oximetry (%) 100 Oxygen Delivery Method Room Air Intake Visit Reasons: FU patient request Allergies amoxicillin Allergy (Unknown, Verified 12/04/23 09:00) Unknown azithromycin Allergy (Unknown, Verified 12/04/23 09:00) Unknown naproxen Allergy (Unknown, Verified 12/04/23 09:00) Unknown Penicillins Allergy (Unknown, Verified 12/04/23 09:00) Unknown Medication List - Last Reconciled 12/04/23 by Gisela Torres LPN No Known Home Meds HPI HPI FU patient request: Details: 58-year-old male who presents today to the office for follow up. He underwent right biceps tenotomy with RTC repair on 09/19/22 and was doing well for about two months post procedure. His last visit with us was in April 2023. He still reports pain in his arms. He reports weakness in his arms. His ROM is same as before and painful. 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 He has no history of DM. He is interested in meeting with Dr. Carbone and discuss surgical option prior to proceeding with discussed plan. Past procedure 04/15/23: Right bicipital groove and tendon injection under ultrasound guidance: Short term relief. 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 Alert and oriented. Mood and affect appropriate. Follows and participates in conversation appropriately. Respiratory effort is unlabored. Able to transition from sit to stand unassisted. Ambulates with bilaterally normal heel strike and toe off. Results Reviewed Results Reviewed: No imaging is available for review. Assessment & Plan Assessment & Plan (1) Status post right rotator cuff repair: Comment: 09/19/2022 NE Code(s): Z98.890 - Other specified postprocedural states Category: Surgical (2) Biceps tendonitis on right: Code(s): M75.21 - Bicipital tendinitis, right shoulder Category: Medical Plan A 58-year-old man with right biceps tenotomy with RTC repair on 09/19/22 as well as ultrasound-guided bicipital groove injection. Unfortunately, he now reports that his symptoms are back to baseline, as if he never had anything done. He is concerned about anchor integrity and asked me if his repair was holding up. I urged him to follow up with Dr. Carbone to assess the need for any further reoperation. If there is no indication for further surgery, I recommended a trial of temporary nerve stimulation for pain control and provided in the brochure for the same. He will follow up with me after his meeting with Dr. Carbone. Scribed for Dr. Gutierrez by Nate Morrissey, medical front desk specialist, on 12/04/2023. I, Dr. Gutierrez, have personally reviewed and agree with the information entered by the scribe. Coding Level of Care Code Est Pt Level 3 (67248) Diagnoses Status post right rotator cuff repair Z98.890 Biceps tendonitis on right M75.21
== END 2023-12-04 09:51 | disposition home or self-care (01) ==
PROVIDERS: PCP Internal Medicine; Visit Provider Internal Medicine
DX: Z98.890 Other specified postprocedural states (principal); M75.21 Bicipital tendinitis, right shoulder
CPT/HCPCS: 99213

== ENCOUNTER → 2023-12-04 08:48 | Outpatient (BNVA) | payer MEDICAID, SELFPAY | PROVIDERS: PCP Internal Medicine; Visit Provider Internal Medicine ==

== ENCOUNTER 2024-07-03 08:49 | Outpatient (REF) | payer BC, SELFPAY ==
[2024-07-03 09:50] LABS: MANUAL DIFF FLAG NO
[2024-07-03 10:12] LABS: Basophils Percent Auto 0.5 % (0-2); Eosinophils Absolute Auto 0.1 X10*3/uL (0.0-0.4); Eosinophils Percent Auto 1.4 % (0-4); Hematocrit 44.5 % (42.0-52.0); Hemoglobin 15.8 g/dl (14.0-18.0); Imm Gran Abs Auto 0.01 X10*3/uL (0.00-0.03); Imm Gran Pct Auto 0.2 % (0.0-0.4); Lymphocytes Absolute Auto 1.3 X10*3/uL (1.2-4.9); Lymphocytes Percent Auto 31.3 % (20-40); Mean Corpuscular HGB Conc 35.5 g/dl (31.0-36.0); Mean Corpuscular Hemoglobin 33.5 pg (27.0-33.0); Mean Corpuscular Volume 94.3 fL (80.0-98.0); Mean Platelet Volume 9.5 fL (9.4-12.4); Monocytes Absolute Auto 0.4 X10*3/uL (0.1-1.2); Monocytes Percent Auto 8.4 % (2-11); Neutrophils Absolute Auto 2.4 x10*3/uL (2.0-8.3); Neutrophils Percent Auto 58.2 % (45-73); Platelet Count 233 X10*3/uL (160-400); Red Blood Count 4.72 X10*6/uL (4.60-5.80); Red Cell Distribution Width 12.9 % (11.0-16.0); White Blood Count 4.2 X10*3/uL (4.8-10.8)
[2024-07-03 10:42] LABS: Anion Gap 13 (12-20); Blood Urea Nitrogen 13 mg/dL (9-16); Calcium 9.3 mg/dL (8.4-10.2); Carbon Dioxide 27 mmol/L (22-29); Chloride 105 mmol/L (96-108); Estimated Glomerular Filt Rate > 60; Glucose Random 112 mg/dL (60-115); Potassium 4.4 mmol/L (3.3-5.1); Sodium 141 mmol/L (135-145)
[2024-07-03 11:03] LABS: TSH reflex Free T4 0.53 uIU/mL (0.32-4.0); Vitamin D 25-OH Total 26.7 ng/mL (>30)
[2024-07-03 11:09] LABS: Prostate Specific Antigen 1.41 ng/mL (<0.05-4.0); Vitamin B12 337 pg/mL (200-900)
[2024-07-09 14:17] LABS: Testosterone, Free 103.5 pg/mL (35.0-155.0); Testosterone, Total 877 ng/dL (250-1100)
== END 2024-07-03 08:50 | disposition home or self-care (01) ==
LOC: HO.LAB 08:49
PROVIDERS: PCP Internal Medicine; Visit Provider Physician Assistant
DX: I10 Essential (primary) hypertension (principal); R41.3 Other amnesia; Z12.5 Encounter for screening for malignant neoplasm of prostate; F41.8 Other specified anxiety disorders
CPT/HCPCS: 36415; 80048; 82306; 82607; 84153; 84402; 84403; 84443; 85025

== ENCOUNTER 2024-07-03 08:49 | Outpatient (AMB) | payer BC, MEDICAID, SELFPAY ==
--- NOTE | 2024-07-03 08:51 | MHC.PC.OV ---
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 Accompanied by: Self / Same As Patient Allergies amoxicillin Allergy (Unknown, Verified 07/03/24 08:55) Unknown azithromycin Allergy (Unknown, Verified 07/03/24 08:55) Unknown naproxen Allergy (Unknown, Verified 07/03/24 08:55) Unknown Penicillins Allergy (Unknown, Verified 07/03/24 08:55) Unknown Medication List - Last Reconciled 07/03/24 by DENIA Leal comp.stocking,knee,long,medium As directed sertraline 50 mg PO DAILY HPI HPI Comments History of Present Illness Details 59-year-old male with history of depression and anxiety presents to the office today for management of chronic conditions as well as to establish care. He states he has several concerns for the office today. He reports that he has had varicose veins of the left lower extremity ongoing since he was a child following an episode of frostbite. More recently he has had swelling and edema of the left lower extremity that has been ongoing for several years but is worsening. He does state that the swelling improves when he wakes up in the morning but significantly worsens after prolonged standing especially after work. He reports mild discomfort associated with this. He does report pain when walking but states this is more in the area of the plantar fascia and does have a history of plantar fasciitis. He reports this as a mild discomfort as a 1/10. He denies any cool feet. He is also reporting significant memory issues and word-finding difficulty that have been ongoing for months but worsening. He is unsure if this is brought on by anxiety or if he feels anxious due to the issue. He states when he is trying to tell a joke, he is unable to get the words out. He is also leaving items such as his phone and keys around the house and is unable to find them. He states while driving, he will often miss excess but has never wound up in an area and does not know where he is or how to get home. ROS: General: No fevers, malaise, unintentional weight loss HEENT: No blurred vision, diplopia Cardiovascular: No chest pain, palpitations, or leg edema Respiratory: No shortness of breath, wheezing, cough Extrem: see hpi Neuro: No headaches, weakness, paresthesias Skin: No rashes or lesions Exam: Constitutional - Awake and Alert, No apparent distress Eyes - PERRLA, EOMI Cardiovascular - S1S2, RRR, No edema Respiratory - Normal lung expansion, Normal respiratory effort, No respiratory distress, CTA bilaterally Extremities - no calf tenderness bilaterally, bulging tortuous variscosities of the LLE wiht 2+ pitting edema to the calf. 2+ pedal pulses bilaterally. Extremity warm and well perfused Skin - Warm/Dry Neurological - Alert & oriented x3, CN II-XII in tact. MOCA: Executive Fx- /5 Naming - 3/3 Memory - no points Attention - /6 Language - 3/3 Abstraction 2/2 Delayed Recall - /5 (MIS 11/25) Orientation / Psychological - Appropriate affect [facility] Medical History (Updated 07/03/24 @ 11:28 by DENIA Leal) Tubular adenoma Varicose veins of left lower extremity Infected epidermoid cyst Abscess of back History of COVID-19 Arthritis Right inguinal hernia Chronic right hip pain Surgical History H/O colonoscopy History of right inguinal hernia repair History of hip surgery Social History Alcohol intake: never Patient Tobacco Use Status: Never used Tobacco Current occupational status: employed 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 Physical exam (Primary Care) Vital Signs: Last Vital Signs Temp 97.2 F 07/03/24 08:56 Pulse 60 07/03/24 08:56 Resp 16 07/03/24 08:56 BP 112/68 07/03/24 08:56 Pulse Ox 99 07/03/24 08:56 Oxygen Delivery Method Room Air 07/03/24 08:56 BMI result Body Mass Index 25.8 Tobacco/Smoking Status: Tobacco use Status Patient Tobacco Use Status Never used Tobacco 07/03/24 08:51 Coding Level of Care Code New Pt Level 4 (46616) Complex EM visit Add On G2211 Diagnoses Localized swelling of left lower extremity R22.42 Varicose veins of left lower extremity I83.92 Depression with anxiety F41.8 Memory impairment R41.3 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 Venous duplex ordered. Suspect swelling if related to venous insufficiency possibly related to varicose veins. US of the LLE veins to evaluate for venous insufficiency ordered. Will also check renal function and lytes. Compression stockings ordered. Recommend leg elevation and low sodium diet. Referral to vascular surgery placed given coinciding varicose veins and resulting discomfort. (2) Varicose veins of left lower extremity: Code(s): I83.92 - Asymptomatic varicose veins of left lower extremity Category: Medical Plan: Plan as above (3) Depression with anxiety: Code(s): F41.8 - Other specified anxiety disorders Category: Medical Plan: Uncontrolled. No SI/HI. Initiate setraline 50mg daily. Counseled on dosing and side effects. Will follow-up in 1 month (4) Memory impairment: Code(s): R41.3 - Other amnesia Category: Medical Plan: Calvert reassuring with score 25/30. We will check labs to further investigate memory impairment. However given associated anatomic dysphagia we will also order MRI of the brain for further evaluation. 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 We will check labs to further investigate memory impairment. However given associated anatomic dysphagia we will also order MRI of the brain for further evaluation. Plan Follow up in one month. Orders: Orders TSH reflex Free T4 Today R41.3 - Other amnesia, Z12.5 - Encounter for screening for malignant neoplasm of prostate Basic Metabolic Panel Today R41.3 - Other amnesia, Z12.5 - Encounter for screening for malignant neoplasm of prostate Complete Blood Count Auto Diff Today R41.3 - Other amnesia, Z12.5 - Encounter for screening for malignant neoplasm of prostate Prostate Specific Antigen Today R41.3 - Other amnesia, Z12.5 - Encounter for screening for malignant neoplasm of prostate US venous duplex LE LT Today R22.42 - Localized swelling, mass and lump, left lower limb Testosterone, Free/Total Today F41.8 - Other specified anxiety disorders, R41.3 - Other amnesia Vitamin B12 Today R41.3 - Other amnesia, Z12.5 - Encounter for screening for malignant neoplasm of prostate Vitamin D 25-OH Total Today R41.3 - Other amnesia, Z12.5 - Encounter for screening for malignant neoplasm of prostate venous insuf bilat Today R22.42 - Localized swelling, mass and lump, left lower limb MR head/brain wo con Today R41.3 - Other amnesia, R48.8 - Other symbolic dysfunctions Referrals Vascular Surgery Referral R22.42 - Localized swelling, mass and lump, left lower limb Medications: New comp.stocking,knee,long,medium As directed 24 ea 0RF R22.42 - Localized swelling, mass and lump, left lower limb sertraline Take 1//2 tab daily x 1 week, then take 1 tab daily 50 mg PO DAILY 30 tabs 0RF comp.stocking,knee,long,medium As directed 24 ea 0RF R22.42 - Localized swelling, mass and lump, left lower limb
[2024-07-03 08:56] VITALS: BP 112/68; PULSE 60; RESP 16; TEMP 36.2; O2SAT 99; BMI 25.8
--- OUTSIDE RECORDS SUMMARY | 2024-07-03 09:10 | XMS_ITS | Patient Health Record ---
Author Organization [facility] Address [address] [place] [address] Care Team Providers Care Physicist [employer] Name Role Phone Alphonse Guzman MD Primary Care Provider Donnell Anderson Jr Unavailable Allergies Allergen (clinical drug ingredient) Drug/Non Drug Allergy documented on EMR Reaction Allergy Type Onset Date Status amoxicillin Amoxicillin Unknown Drug Allergy Act daniela Penicillin Unknown Drug Allergy Active naproxen Naproxen Unknown Drug Allergy Active Azithromycin Unknown Drug Allergy Acti ve Reason For Referral No Information Medications Medication SIG (Take, Route, Frequency, Duration) Notes Start Date End Date Status MiraLax (colon prep) 8.3 ounce ((238) grams mixed with Gatorade or Crystal Light orally begin at 5:00 p.m. the day before the procedure for 1 day 09/21/2020 Active Immunizations Vaccine Route Administration Date Status Comme nts Influenza Unknown 09/21/2020 Refused Social History Alcohol Screen Question Answer Notes Did you have a drink containing alcohol in the p ast year? No Points 0 Interpretation Negative Problems Problem Type SNOMED Code ICD Code Onset Dates Problem Status W/U Status Risk Notes Problem 597569613 Colon cancer screening (Z12.11) Active confirmed Problem 024772088 Personal history of colonic polyps (Z86.010) Active confirmed Problem 59392646 Encounter for other preprocedural examination (Z01.818) Active confirmed Plan Of Treatment Future Test Test Name Order Date COLONOSCOPY 08/04/2015 COLONOSCOPY 09/21/2020 Insurance Providers Payer Name Payer Address Payer Phone Subscriber Number Group Number Insured Name Patient Relationship to Insured Coverage Start Date Coverage End Date [facility] [address] [place] [place] [place] [phone] [id number] BALWINDER HUTTON Self - patient is the insured Medical (General) History Medical History History ICD Code arthritis covid exposed feb 12 2020 hernia Surgical History Surgery Date(Month/Year) orthopedic pelvis and femur 2008
== END 2024-07-03 09:26 | disposition home or self-care (01) ==
LOC: HO.HMCHD 08:49
PROVIDERS: PCP Internal Medicine; Visit Provider Physician Assistant
DX: R22.42 Localized swelling, mass and lump, left lower limb (principal); I83.92 Asymptomatic varicose veins of left lower extremity; F41.8 Other specified anxiety disorders; R41.3 Other amnesia; R48.8 Other symbolic dysfunctions

== ENCOUNTER → 2024-07-14 18:42 | Outpatient (BNV) | payer BC, SELFPAY | PROVIDERS: Visit Provider Radiology Diagnostic Radiology | DX: R48.8 Other symbolic dysfunctions (principal) | CPT/HCPCS: 70551 ==

== ENCOUNTER 2024-07-14 18:45 | Outpatient (REF) | payer BC, SELFPAY ==
--- NOTE | ~2024-07-14 | MR_ITS ---
CLINICAL HISTORY: R48.8 - Other symbolic dysfunctions MR brain without contrast. COMPARISON: None FINDINGS: No abnormal diffusion restriction in the brain parenchyma or extra-axial spaces. No evidence of mass, mass effect or midline shift. No intracranial hemorrhage or abnormal extra-axial fluid collection. The ventricles are proportional with the degree of mild cerebral volume loss without evidence of hydrocephalus. Basilar cisterns are patent. Few patchy areas of T2/FLAIR hyperintensity within the anterior right frontal lobe and periventricular white matter most often associated with mild white-matter small-vessel disease. Cerebellar hemispheres and cerebellar vermis are normal. Fourth ventricle is normal. No brainstem abnormality is identified. Intracranial flow voids are patent. Minimal mucosal thickening present within the maxillary sinuses. Mastoid air cells are clear. IMPRESSION: 1. No acute intracranial findings. No evidence of acute ischemia, mass, or mass effect. This document has been electronically signed by: Junior Bauman MD on 07/15/2024 14:33:25
== END 2024-07-14 18:46 | disposition home or self-care (01) ==
LOC: HO.MRI 18:45
PROVIDERS: Visit Provider Physician Assistant
DX: R48.8 Other symbolic dysfunctions (principal); R41.3 Other amnesia
CPT/HCPCS: 70551

== ENCOUNTER 2024-07-29 13:00 | Outpatient (REF) | payer BC, SELFPAY ==
--- NOTE | ~2024-07-29 | US_ITS ---
EXAMINATION: US TRIPLEX LOWER EXTREMITY, LEFT CLINICAL INFORMATION: Left lower extremity edema COMPARISON: None available. TECHNIQUE: Color-flow triplex imaging with spectral analysis and compression Doppler were performed on the left lower extremity. FINDINGS: Respiratory variation, normal compression and augmented flow are noted throughout the left lower extremity. The visualized common femoral vein, superficial femoral vein, profunda femoral vein, popliteal vein and midcalf peroneal and posterior tibial venous segments show no evidence of deep venous thrombosis. US/US venous duplex LE LT IMPRESSION: No evidence of deep venous thrombosis involving the left lower extremity. Electronically signed by: Ezequiel Leos MD 07/29/2024 02:24 PM EDT
--- OUTSIDE RECORDS SUMMARY | 2024-07-29 14:55 | XMS_ITS | Patient Health Record ---
Author Organization [facility] Address [address] [place] [address] Care Team Providers Care Ob Tech Name Role Phone Alphonse Guzman MD Primary [...] Problem Status W/U Status Risk Notes Problem 056688438 Colon cancer screening (Z12.11) Active confirmed Problem 017171145 Personal history of colonic polyps (Z86.010) Active confirmed Problem 79825339 Encounter for other preprocedural examination (Z01.818) Active confirmed Plan Of Treatment Future Test Test Name Order Date COLONOSCOPY 08/04/2015 COLONOSCOPY 09/21/2020 Insurance Providers Payer Name Payer Address Payer Phone Subscriber Number Group Number Insured Name Patient Relationship to Insured Coverage Start Date Coverage End Date [facility] [address] [place] [phone] [id number] BALWINDER HUTTON Self - patient is the insured Medical (General) History Medical History History ICD Code arthritis covid exposed feb 12 2020 hernia Surgical History Surgery Date(Month/Year) orthopedic pelvis and femur 2008
== END 2024-07-29 13:01 | disposition home or self-care (01) ==
LOC: HO.US 13:00
PROVIDERS: PCP Internal Medicine; Visit Provider Physician Assistant
DX: R22.42 Localized swelling, mass and lump, left lower limb (principal)
CPT/HCPCS: 93971

== ENCOUNTER → 2024-07-29 13:36 | Outpatient (BNV) | payer BC, SELFPAY | PROVIDERS: PCP Internal Medicine; Visit Provider Radiology Diagnostic Radiology | DX: R60.0 Localized edema (principal) | CPT/HCPCS: 93971 ==

== ENCOUNTER 2024-07-31 08:33 | Outpatient (AMB) | payer BC, SELFPAY ==
--- NOTE | 2024-07-31 08:34 | A.OFFPC_ITS ---
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 Accompanied by: Self / Same As Patient Allergies amoxicillin Allergy (Unknown, Verified 07/31/24 08:37) Unknown azithromycin Allergy (Unknown, Verified 07/31/24 08:37) Unknown naproxen Allergy (Unknown, Verified 07/31/24 08:37) Unknown Penicillins Allergy (Unknown, Verified 07/31/24 08:37) Unknown Z pack Allergy (Mild, Uncoded 07/31/24 08:37) Hives Medication List - Last Reconciled 07/31/24 by DENIA Leal comp.stocking,knee,long,medium As directed compr.stocking,knee,long,large 30-40mmhg sertraline 75 mg (1.5 x 50 mg) PO DAILY HPI HPI Comments History of Present Illness Details 59-year-old male with history of social anxiety, adynamic dysphasia, and memory loss presents to the office today for follow-up. Social anxiety-continues to struggle with anxiety in social situations leading to difficulty with word finding. He was started on sertraline 50 mg but she is not finding helpful. 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 He does have upcoming neurology appointment on 08/11 Memory loss-last [facility] score 25/30. Referral to Neurology scheduled as above. MRI results as above Varicose veins/edema left lower extremity-venous duplex negative for any DVT. Has upcoming ultrasound to evaluate venous insufficiency. Referral to vascular surgery pending. He is experiencing some relief with compression stockings ROS: ROS: General: No fevers, malaise, unintentional weight loss HEENT: No blurred vision, diplopia. No sore throat, nasal congestion, rhinorr hea, sinus pain, ear pain Cardiovascular: No chest pain, palpitations. See HPI Respiratory: No shortness of breath, wheezing, cough MSK: No myalgia, back pain Neuro: No headaches, weakness, paresthesias. See HPI Psych: See HPI Skin: No rashes or lesions EXAM: EXAM: Constitutional - Awake and Alert, No apparent distress Eyes - PERRL Cardiovascular - S1S2, RRR, No edema Respiratory - Normal lung expansion, Normal respiratory effort, No respiratory distress, CTA bilaterally Extremities - no calf tenderness bilaterally, no swelling Skin - Warm/Dry Neurological - Alert & oriented x3. No dysphasia noted Psychological - somewhat anxious appearing [facility] Medical History (Updated 07/03/24 @ 11:28 by DENIA Leal) Tubular adenoma Varicose veins of left lower extremity Infected epidermoid cyst Abscess of back History of COVID-19 Arthritis Right inguinal hernia Chronic right hip pain Surgical History (Updated 07/30/24 @ 15:25 by Tania Chowdary) H/O colonoscopy (~12/06/20) History of right inguinal hernia repair History of hip surgery Social History Alcohol intake: never Patient Tobacco Use Status: Never used Tobacco Current occupational status: employed 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 Physical exam (Primary Care) Vital Signs: Last Vital Signs Temp 97.2 F 07/31/24 08:38 Pulse 95 07/31/24 08:38 Resp 18 07/31/24 08:38 BP 114/78 07/31/24 08:38 Pulse Ox 94 07/31/24 08:38 Oxygen Delivery Method Room Air 07/31/24 08:38 BMI result Body Mass Index 25.2 Tobacco/Smoking Status: Tobacco use Status Patient Tobacco Use Status Never used Tobacco 07/31/24 08:40 Coding Level of Care Code Est Pt Level 4 (15665) Complex EM visit Add On G2211 Diagnoses Localized swelling of left lower extremity R22.42 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 No DVT. 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 Follow-up with neurology as scheduled. Suspect this may also be related to anxiety to some extent (3) Memory impairment: Code(s): R41.3 - Other amnesia Category: Medical Plan: [facility] suggestive of severe cognitive impairment. Follow-up with neurology. Suspect some of his memory impairment may already related to his anxiety to some extent (4) Depression with anxiety: Code(s): F41.8 - Other specified anxiety disorders Category: Medical Plan: Increase sertraline to 75 mg daily. Recommend seeking out a counselor and given resources. Discussed techniques such as grounding and mindfulness and patient is given handouts. Plan Follow-up for annual physical exam with labs completed prior to visit Orders: Orders Basic Metabolic Panel 6 Weeks Z00.00 - Encounter for general adult medical examination without abnormal findings Liver Panel 6 Weeks Z00.00 - Encounter for general adult medical examination without abnormal findings Ferritin 6 Weeks Z00.00 - Encounter for general adult medical examination without abnormal findings IRON PROFILE 6 Weeks Z00.00 - Encounter for general adult medical examination without abnormal findings Complete Blood Count Auto Diff 6 Weeks Z00.00 - Encounter for general adult medical examination without abnormal findings Hemoglobin A1c 6 Weeks Z00.00 - Encounter for general adult medical examination without abnormal findings Lipid Panel 6 Weeks Z00.00 - Encounter for general adult medical examination without abnormal findings Prostate Specific Antigen 6 Weeks Z00.00 - Encounter for general adult medical examination without abnormal findings Medications: Changed From sertraline Take 1//2 tab daily x 1 week, then take 1 tab daily 50 mg PO DAILY 30 tabs 0RF To sertraline 75 mg (1.5 x 50 mg) PO DAILY 90 tabs 1RF
--- OUTSIDE RECORDS SUMMARY | 2024-07-31 08:36 | XMS_ITS | Patient Health Record ---
Author Organization [facility] Address [address] [place] [address] Care Team Providers Care 4Th Grade Math Teacher Name Role Phone Alphonse Guzman MD Primary Care Provider Donnell Anderson Jr Unavailable [phone] Allergies Allergen (clinical drug ingredient) Drug/Non Drug [...] Problem Status W/U Status Risk Notes Problem 015876267 Colon cancer screening (Z12.11) Active confirmed Problem 529897306 Personal history of colonic polyps (Z86.010) Active confirmed Problem 90425956 Encounter for other preprocedural examination (Z01.818) Active confirmed Plan Of Treatment Future Test Test Name Order Date COLONOSCOPY 08/04/2015 COLONOSCOPY 09/21/2020 Insurance Providers Payer Name Payer Address Payer Phone Subscriber Number Group Number Insured Name Patient Relationship to Insured Coverage Start Date Coverage End Date [facility] [address] [place] [phone] [id number] BALWINDER HUTTON Self - patient is the insured Medical (General) History Medical History History ICD Code arthritis covid exposed feb 12 2020 hernia Surgical History Surgery Date(Month/Year) orthopedic pelvis and femur 2008
[2024-07-31 08:38] VITALS: BP 114/78; PULSE 95; RESP 18; TEMP 36.2; O2SAT 94; BMI 25.2
== END 2024-07-31 09:01 | disposition home or self-care (01) ==
LOC: HO.HMCHD 08:34
PROVIDERS: PCP Internal Medicine; Visit Provider Physician Assistant
DX: R22.42 Localized swelling, mass and lump, left lower limb (principal); R48.8 Other symbolic dysfunctions; R41.3 Other amnesia; F41.8 Other specified anxiety disorders

== ENCOUNTER → 2024-07-31 08:33 | Outpatient (BNVA) | payer BC, SELFPAY | PROVIDERS: PCP Internal Medicine; Visit Provider Physician Assistant ==

== ENCOUNTER 2024-08-06 10:24 | Outpatient (AMB) | payer BC, SELFPAY ==
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
[2024-08-06 10:29] VITALS: BMI 25.2
--- OUTSIDE RECORDS SUMMARY | 2024-08-06 12:07 | XMS_ITS | Patient Health Record ---
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 Name Role Phone Alphonse Guzamn MD Primary Care Provider Donnell Anderson Jr [...] Problem Status W/U Status Risk Notes Problem 108223515 Colon cancer screening (Z12.11) Active confirmed Problem 579780414 Personal history of colonic polyps (Z86.010) Active confirmed Problem 66495342 Encounter for other preprocedural examination (Z01.818) Active confirmed Plan Of Treatment Future Test Test Name Order Date COLONOSCOPY 08/04/2015 COLONOSCOPY 09/21/2020 Insurance Providers Payer Name Payer Address Payer Phone Subscriber Number Group Number Insured Name Patient Relationship to Insured Coverage Start Date Coverage End Date [facility] [address] [place] [phone] [id number] BALWINDER HUTTON Self - patient is the insured Medical (General) History Medical History History ICD Code arthritis covid exposed feb 12 2020 hernia Surgical History Surgery Date(Month/Year) orthopedic pelvis and femur 2008
== END 2024-08-06 10:47 | disposition home or self-care (01) ==
LOC: HO.HVS 10:25
PROVIDERS: PCP Internal Medicine; Visit Provider Physician Assistant Surgical
DX: I83.12 Varicose veins of left lower extremity with inflammation (principal)
CPT/HCPCS: 99204

== ENCOUNTER → 2024-08-06 10:24 | Outpatient (BNVA) | payer BC, SELFPAY | PROVIDERS: PCP Internal Medicine; Visit Provider Physician Assistant Surgical | DX: Z13.89 Encounter for screening for other disorder (principal) ==

== ENCOUNTER 2024-08-11 07:56 | Outpatient (AMB) | payer BC, SELFPAY ==
--- OUTSIDE RECORDS SUMMARY | 2024-08-11 08:00 | XMS_ITS | Patient Health Record ---
Author Organization [facility] Address [address] [place] [address] Care Team Providers Care Junior Copywriter Name Role Phone Alphonse Guzman MD Primary Care Provider Donnell Anderson Jr Unavailable [phone] Allergies Allergen (clinical drug ingredient) Drug/Non Drug Allergy documented on EMR Reaction Allergy Type Onset Date Status amoxicillin Amoxicillin Unknown Drug Allergy Act adniela Penicillin Unknown Drug Allergy Active naproxen Naproxen [...] Problem Status W/U Status Risk Notes Problem 576039241 Colon cancer screening (Z12.11) Active confirmed Problem 471235834 Personal history of colonic polyps (Z86.010) Active confirmed Problem 27307487 Encounter for other preprocedural examination (Z01.818) Active confirmed Plan Of Treatment Future Test Test Name Order Date COLONOSCOPY 08/04/2015 COLONOSCOPY 09/21/2020 Insurance Providers Payer Name Payer Address Payer Phone Subscriber Number Group Number Insured Name Patient Relationship to Insured Coverage Start Date Coverage End Date [facility] [address] [place] [phone] [id number] BALWINDER HUTTON Self - patient is the insured Medical (General) History Medical History History ICD Code arthritis covid exposed feb 12 2020 hernia Surgical History Surgery Date(Month/Year) orthopedic pelvis and femur 2008
--- NOTE | 2024-08-11 08:02 | MHC.OFFVIS ---
Vital Signs 08/11/24 08:04 Height 6 ft Weight 181 lb BMI 24.5 BP 128/72 Blood Pressure Location Rt brachial Position Sitting Intake Visit Reasons: INP-Other Amnesia Intake Note: Patient referred In house for memory impairment Allergies amoxicillin Allergy (Unknown, Verified 08/11/24 08:06) Unknown azithromycin Allergy (Unknown, Verified 08/11/24 08:06) Unknown naproxen Allergy (Unknown, Verified 08/11/24 08:06) Unknown Penicillins Allergy (Unknown, Verified 08/11/24 08:06) Unknown Z pack Allergy (Mild, Uncoded 08/11/24 08:06) Hives Medication List - Last Reconciled 08/11/24 by Brittney Boone MD comp.stocking,knee,long,medium As directed compr.stocking,knee,long,large 30-40mmhg sertraline 75 mg (1.5 x 50 mg) PO DAILY HPI Comments Details: 59y/o male comes for evaluation of short term memory issues . He started noticing problems - 2 years ago . he frequently misplaces or loses things, forgets conversations, trouble with names, repeating, trouble focusing while watching movies or reading a book, has left food on the stove forgetting to turn it off etc.He is concerned about his speech- word finding difficulties, softer No trouble with driving. He has depression - 2021 - he lost excess weight and was diagnosed with Major Depression. He was on medications and stopped it when he was feeling better but restarts recently He does not see a therapist or a psychiatrist. No panic attacks or suicidal thoughts. he sleeps OK , not sure if he snores. He lives alone. No h/o head injury and has excessive fatigue during daytime. 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 [facility] [employer] [employer], [facility] Medical History (Updated 08/11/24 @ 08:31 by Brittney Boone MD) Cognitive impairment, mild, so stated Tubular adenoma Varicose veins of left lower extremity Infected epidermoid cyst Abscess of back History of COVID-19 Arthritis Right inguinal hernia Chronic right hip pain Surgical History History of rotator cuff surgery H/O colonoscopy (~12/06/20) History of right inguinal hernia repair History of hip surgery Social History Alcohol intake: never Patient Tobacco Use Status: Never used Tobacco Current occupational status: employed 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 Physical Exam Vital Signs: Last Vital Signs BP 128/72 08/11/24 08:04 BMI result Body Mass Index 24.5 Const General: cooperative, healthy appearing, comfortable and no acute distress Nutritional Appearance: average body habitus Orientation/consciousness: patient oriented x3 Eyes Pupils: Equal, round and reactive pupils present Neck Neck: Yes no meningeal signs Neuro General: patient oriented x3, tone normal, moves all extremities, no meningeal signs and no focal motor deficits Cranial nerves: Yes Facial sensation intact/muscles of mastication intact, Yes Equal, round and reactive pupils present, Yes Bilaterally intact EOM present, Yes Nystagmus not present, Yes Normal facial strength present, Yes Midline tongue present, Yes Symmetric palate elevation present and Yes Ability to bilaterally elevate shoulders present Cognition (Neuro): normal cognition Gait exam (Neuro): Normal gait present Motor exam (neuro): 5/5 motor strength present throughout and Normal motor muscle tone present throughout Deep tendon reflexes (DTR's): Right triceps reflex intensity grade: 1+, Left triceps reflex intensity grade: 1+, Rt Biceps (C5, C6): 1+, Left biceps reflex intensity grade: 1+, Right brachioradialis reflex intensity grade: 1+, Left brachioradialis reflex intensity grade: 1+, Right patellar reflex intensity grade: 1+, Left patellar reflex intensity grade: 1+, Right ankle reflex intensity grade: 1+ and Left ankle reflex intensity grade: 1+ Psych Appearance: well kempt Speech and movement: Slowed speech present (Psych) and Slowed movement present (Neuro) Affect: Depressed mood present Attitude: cooperative Orientation What is the (year) (season) (date) (day) (month)?: year, season, date, day and month Where are we (state) (county) (town or city) (hospital) (floor)?: state, county, town or city, hospital/clinic and floor Registration Name of 3 unrelated objects clearly and slowly, then ask patient to repeat all 3 of them. (1st repeat determines score. Make sure they can repeat all three): object 1, object 2 and object 3 Attention & Calculation (CHOOSE ONE) Ask pt to begin with 100 & count backward by 7. Stop after 5 repeats. If pt cannot ask them to spell the word WORLD backward.: 93, 86, 79, 72 and 65 Recall Ask patient to repeat the 3 items from question #3.: object 1, object 2 and object 3 Language Show patient a wristwatch & ask what it is. Repeat for pencil.: watch and pencil Ask the patient to repeat the phrase 'No ifs, ands, or buts' after you.: correct Ask the patient to 'take a piece of paper with their right hand' 'fold paper in half' 'place paper on floor': take paper in right hand, fold paper in half and place paper on floor Print the sentence 'CLOSE YOUR EYES' on a piece. If patient actually closes eyes then score.: followed written direction Give patient a blank piece of paper & ask to write a sentence. Score if it contains a noun & verb.: sentence contains subject and verb Ask patient to copy figure of intersecting pentagons exactly. Score if all 10 angles & 2 intersects are included.: all 10 angles present & 2 are intersected Score Score: 30 Results Reviewed Results Reviewed: 07/15/24 No acute intracranial findings. No evidence of acute ischemia, mass, or mass effect. Assessment & Plan Assessment & Plan (1) Cognitive impairment, mild, so stated: Comment: mood related ? early ALzheimers Code(s): G31.84 - Mild cognitive impairment of uncertain or unknown etiology Category: Medical (2) Depression with anxiety: Code(s): F41.8 - Other specified anxiety disorders Category: Medical Plan His sertraline was recently increased to 75Mg qd refer for psychiatris evaluation and psychotherapy PET Amyloid to look for changes c/w alzheimers MRI and labs reviewed Orders: Orders PET Brain beta amyloid Today G31.84 - Mild cognitive impairment of uncertain or unknown etiology Medications: Changed From sertraline 50 mg PO DAILY 90 tabs 1RF To sertraline 75 mg (1.5 x 50 mg) PO DAILY 120 tabs 1RF Coding Level of Care Code New Pt Level 4 (82686) Diagnoses Cognitive impairment, mild, so stated G31.84 Depression with anxiety F41.8
[2024-08-11 08:04] VITALS: BP 128/72; BMI 24.5
== END 2024-08-11 08:39 | disposition home or self-care (01) ==
LOC: HO.HSMS 07:57
PROVIDERS: Visit Provider Psychiatry & Neurology Neurology
DX: G31.84 Mild cognitive impairment of uncertain or unknown etiology (principal); F41.8 Other specified anxiety disorders
CPT/HCPCS: 99204

== ENCOUNTER 2024-08-18 13:10 | Outpatient (REF) | payer BC, SELFPAY ==
--- NOTE | ~2024-08-18 | US_ITS ---
EXAMINATION: US LOWER EXTREMITY VENOUS (REFLUX EXAM), BILATERAL CLINICAL INFORMATION: Varices. COMPARISON: None. TECHNIQUE: Color flow triplex imaging and compression Doppler was performed to evaluate both the deep and the superficial systems bilaterally. To evaluate the superficial system, the examination was performed in the upright position. Color-flow Doppler ultrasound and compression ultrasound were utilized. In addition, maneuvers were utilized to demonstrate reflux. FINDINGS: 1. DEEP VENOUS ULTRASOUND OF THE RIGHT LOWER EXTREMITY: Common Femoral Vein: Compressible, normal respiratory variation and augmented flow. Femoral Vein: Compressible, normal color flow and augmentation. Popliteal Vein: Compressible, normal augmentation. Deep Reflux: There is no evidence of reflux in the deep system in either the common femoral vein, superficial femoral or the popliteal vein. There is no evidence of a Wilkinson's cyst. 2. SUPERFICIAL ULTRASOUND WITH DOPPLER OF RIGHT LOWER EXTREMITY: GREAT SAPHENOUS VEIN: Saphenofemoral Junction: [0.5 cm; Reflux: 0 ms Proximal Thigh: 0.4 cm; Reflux: 0 ms Mid Thigh: 0.4 cm; Reflux: 0 ms Distal Thigh: 0.3 cm; Reflux: 0 ms At Knee: 0.3 cm; Reflux: 2908 ms Proximal Calf: 0.3 cm; Reflux: 0 ms Mid Calf: 0.2 cm; Reflux: 0 ms Distal Calf: 0.2 cm; Reflux: 0 ms DUPLICATED MEDIAL GREAT SAPHENOUS VEIN: Diameter: None imaged Reflux: NA DUPLICATED LATERAL GREAT SAPHENOUS VEIN: Diameter: 0.4 cm. Reflux: 3392 ms. SMALL SAPHENOUS VEIN: Saphenopopliteal Junction: 0.1 cm; Reflux: 0 ms Proximal: 0.2 cm; Reflux: 0 ms Distal: 0.2 cm; Reflux: 0 ms VEIN OF GIACOMINI: Size: 0.2 cm. Reflux: NA PERFORATORS: Location: Mid to distal calf. Size: 0.2 cm. Reflux: NA VARICOSITIES: Location: At the knee, proximal and distal calf. Size: 0.3-0.4 cm. Reflux: 2288 ms in the proximal calf and 2944 ms in the distal calf. 3. DEEP VENOUS ULTRASOUND OF THE LEFT LOWER EXTREMITY: Common Femoral Vein: Compressible, normal respiratory variation and augmented flow. Femoral Vein: Compressible, normal color flow and augmentation. Popliteal Vein: Compressible, normal augmentation. Deep Reflux: There is no evidence of reflux in the deep system in either the common femoral vein, superficial femoral or the popliteal vein. Incomplete compressibility and the proximal to mid segment left great saphenous vein. There is no evidence of a Wilkinson's cyst. 4. SUPERFICIAL ULTRASOUND WITH DOPPLER OF LEFT LOWER EXTREMITY: GREAT SAPHENOUS VEIN: Saphenofemoral Junction: 1.5 cm; Reflux: 2492 ms Proximal Thigh: 0.9 cm; Reflux: 2068 ms Mid Thigh: 0.9 cm; Reflux: 2824 ms Distal Thigh: 1.0 cm; Reflux: 1908 ms At Knee: 0.7 cm; Reflux: 1552 ms Proximal Calf: 0.8 cm; Reflux: 1472 ms Mid Calf: 0.6 cm; Reflux: 1928 ms Distal Calf: 0.4 cm; Reflux: 0 ms DUPLICATED MEDIAL GREAT SAPHENOUS VEIN: Diameter: None imaged Reflux: NA DUPLICATED LATERAL GREAT SAPHENOUS VEIN: Diameter: None imaged. Reflux: NA SMALL SAPHENOUS VEIN: Saphenopopliteal Junction: 0.3 cm; Reflux: 0 ms Proximal: 0.3 cm; Reflux: 0 ms Distal: 0.3 cm; Reflux: 2364 ms VEIN OF GIACOMINI: Size: NA Reflux: NA PERFORATORS: Location: Mid calf. Size: 0.2-0.3 cm. Reflux: 2304 ms. VARICOSITIES: Location: Proximal thigh to distal calf Size: 0.3-0.7 cm. Reflux: From the proximal thigh to the proximal calf with a range: 1076 ms-2260 ms. US/US venous duplex LE BI IMPRESSION: Right: Venous insufficiency, great saphenous vein at the knee and the accessory lateral menisci segment. Varices with reflux in the proximal and distal calf. Left: Venous insufficiency, great saphenous vein from the junction to the mid calf. Venous insufficiency, small saphenous vein in the distal calf. Varices with reflux from the proximal thigh to the proximal calf. Perforators with reflux in the mid calf. Chronic/old nonocclusive thrombus, left greater saphenous vein. Electronically signed by: Yong Marcus MD 08/18/2024 02:24 PM EDT
--- OUTSIDE RECORDS SUMMARY | 2024-08-18 13:50 | XMS_ITS | Patient Health Record ---
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 Role Phone Alphonse Guzman MD Primary Care Provider Donnell Anderson Jr Unavailable [phone] Allergies Allergen (clinical drug ingredient) Drug/Non Drug [...] Problem Status W/U Status Risk Notes Problem 577783852 Colon cancer screening (Z12.11) Active confirmed Problem 505283108 Personal history of colonic polyps (Z86.010) Active confirmed Problem 91627930 Encounter for other preprocedural examination (Z01.818) Active confirmed Plan Of Treatment Future Test Test Name Order Date COLONOSCOPY 08/04/2015 COLONOSCOPY 09/21/2020 Insurance Providers Payer Name Payer Address Payer Phone Subscriber Number Group Number Insured Name Patient Relationship to Insured Coverage Start Date Coverage End Date [facility] [employer] [employer] [address] [place] [phone] [id number] BALWINDER HUTTON Self - patient is the insured Medical (General) History Medical History History ICD Code arthritis covid exposed feb 12 2020 hernia Surgical History Surgery Date(Month/Year) orthopedic pelvis and femur 2008
== END 2024-08-18 13:11 | disposition home or self-care (01) ==
LOC: HO.US 13:10
PROVIDERS: Visit Provider Physician Assistant
DX: I83.92 Asymptomatic varicose veins of left lower extremity (principal); R22.42 Localized swelling, mass and lump, left lower limb
CPT/HCPCS: 93970

== ENCOUNTER → 2024-08-18 13:12 | Outpatient (BNV) | payer BC, SELFPAY | PROVIDERS: Visit Provider Radiology Diagnostic Radiology | DX: I87.2 Venous insufficiency (chronic) (peripheral) (principal) | CPT/HCPCS: 93970 ==

== ENCOUNTER 2024-09-24 14:58 | Outpatient (AMB) | payer BC, SELFPAY ==
--- NOTE | 2024-09-24 15:01 | A.OFFVIS_ITS ---
Vital Signs 09/24/24 15:02 Height 6 ft Weight 181 lb BMI 24.5 Intake Visit Reasons: Follow up 08/18/24 US Intake Note: follow up US 08/18/24 for Left LE VV, itching,burning and aching. STates he has had VV since childhood. 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 He has had significant swelling he had a rule out DVT on 07/29. He now presents for follow-up with venous insufficiency testing. Of note has been compliant with compression with minimal relief. 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 Review of Systems Const Reports as per HPI ENT Reports no additional complaints Card Denies chest pain, Denies chest pain at rest and Denies chest pain with activity Resp Denies chest congestion and Denies cough GI Reports no additional complaints Musc Details: pain over varicosities, aching of lower extremities, swelling, cramping, heaviness and tiredness, itching Denies abnormal gait Skin/Breast Reports pruritus and Denies wounds Neuro Reports no additional complaints and Denies abnormal gait Psych Denies no additional complaints Physical Exam Vital Signs: BMI result Body Mass Index 24.5 Const General: cooperative, healthy appearing and comfortable Orientation/consciousness: oriented to person, oriented to place and oriented to time Neck Carotids: no bruits Chest Chest palpation & inspection: normal inspection of the chest and normal palpatio n of entire chest wall Resp Effort & Inspection: normal respiratory effort and able to speak in complete sentences Cardio Rate: regular rate Heart sounds: S1 normal heart sound present and S2 normal heart sound present Peripheral pulses: Peripheral pulses 2+ throughout GI Inspection: Yes normal to inspection Skin Other: +2 edema, large rope-like varicosities greater than 4 mm left thigh and calf CEAP Classification C4 - skin color changes Ep - Etiology Primary As - superficial veins P - reflux General skin exam: dry skin Neuro General: oriented to person, oriented to place and oriented to time Extrem Right lower extremity: full ROM, normal capillary refill and edema Left lower extremity: full ROM, normal capillary refill and edema Psych Mental Status: mental status grossly normal Results Reviewed Results Reviewed: Brief summary of venous insufficiency testing is as follows: right great saphenous vein: Focally positive at knee right small saphenous vein: negative right accessory vein: none present left great saphenous vein: Positive left small saphenous vein: negative left accessory vein: none present Please note there is no evidence of any venous aneurysms or significant tortuosity Assessment & Plan Assessment & Plan (1) Varicose veins of left lower extremity with inflammation: Code(s): I83.12 - Varicose veins of left lower extremity with inflammation Category: Medical Plan: This patient has varicose veins with inflammation. They continue to be a source of discomfort for the patient. The patient has tried conservative treatment with compression, leg elevation and exercise program for over 3 months time. They have been compliant with all treatment. This has provided minimal relief for the patient. I do not anticipate this course of treatment will alter the underlying etiology. The patient has been scheduled for lower extremity venous treatment inclusive of --- left great saphenous vein radiofrequency ablation. Risks, benefits, and complications of this procedure has been discussed in detail with the patient including but not limited to bleeding, infection, and the development of a DVT. The patient has demonstrated a clear understanding and has consented. We will schedule the patient as soon as possible. Thank you for allowing us to participate in this patient's care. If there are any questions or concerns please do not hesitate to contact us. Coding Level of Care Code Est Pt Level 4 (35790) Diagnoses Varicose veins of left lower extremity with inflammation I83.12
[2024-09-24 15:02] VITALS: BMI 24.5
--- OUTSIDE RECORDS SUMMARY | 2024-09-24 15:34 | XMS_ITS | Patient Health Record ---
Author Organization [facility] Address [address] [place] [address] Care Team Providers Care Strike Planning Applications Name Role Phone Thomas (RETIRED) Alphonse [place] Primary Care Provide Donnell Law Jr Unavailable Allergies Allergen (clinical drug ingredient) Drug/Non Drug Allergy documented on EMR Reaction Allergy Type Onset Date Status amoxicillin Amoxicillin Unknown Drug Allergy Act daniela Penicillin Unknown Drug Allergy Active naproxen Naproxen Unknown Drug Allergy Active azithromycin Azithromycin Unknown Drug Allergy A ctive Reason For Referral No Information Medications Medication [...] Problem Status W/U Status Risk Notes Problem 572965815 Colon cancer screening (Z12.11) Active confirmed Problem 357341506 Personal history of colonic polyps (Z86.010) Active confirmed Problem 26407542 Encounter for other preprocedural examination (Z01.818) Active confirmed Plan Of Treatment Future Test Test Name Order Date COLONOSCOPY 08/04/2015 COLONOSCOPY 09/21/2020 Insurance Providers Payer Name Payer Address Payer Phone Subscriber Number Group Number Insured Name Patient Relationship to Insured Coverage Start Date Coverage End Date [facility] [address] [place] [phone] [id number] BALWINDER HUTTON Self - patient is the insured Medical (General) History Medical History History ICD Code arthritis covid exposed feb 12 2020 hernia Surgical History Surgery Date(Month/Year) orthopedic pelvis and femur 2008
== END 2024-09-24 15:44 | disposition home or self-care (01) ==
LOC: HO.HVS 14:58
PROVIDERS: Visit Provider Surgery Vascular Surgery
DX: I83.12 Varicose veins of left lower extremity with inflammation (principal)
CPT/HCPCS: 99214

== ENCOUNTER 2024-10-13 11:00 | Outpatient (AMB) | payer BC, SELFPAY ==
--- NOTE | 2024-10-13 11:15 | MHC.PC.OV ---
Vital Signs 10/13/24 11:18 Height 6 ft Weight 81.647 kg BMI 24.4 BP 120/72 Respiration 14 Pulse 77 Pulse Source Pulse Oximeter Temp 97.5 F Temp Source Temporal Artery Scan Pulse Oximetry (%) 97 Oxygen Delivery Method Room Air Intake Visit Reasons: Routine Vp Revenue Cycle Required: No Accompanied by: Self / Same As Patient Allergies amoxicillin Allergy (Unknown, Verified 10/13/24 11:15) Unknown azithromycin Allergy (Unknown, Verified 10/13/24 11:15) Unknown naproxen Allergy (Unknown, Verified 10/13/24 11:15) Unknown Penicillins Allergy (Unknown, Verified 10/13/24 11:15) Unknown Z pack Allergy (Mild, Uncoded 10/13/24 11:15) Hives HPI HPI Comments History of Present Illness Details 59-year-old male with history of social anxiety, adynamic dysphasia, and memory loss presents to the office today for follow-up. Social anxiety-continues to struggle with anxiety in social situations leading to difficulty with word finding which ultimately worsened his anxiety as well. He would like to discontinue the sertraline which his neurologist recently increased to 100 mg out of concern for side effects including SI/HI. Discussed that these side effects are very rare. However, he does wish to discontinue the medication. Has upcoming appointment with psychiatrist next month. 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 He was seen by Neurology. MMSE at that time normal. [place] was not repeated. He was sent for PET Brain beta amyloid but insurance declined Memory loss-last [place] score 25/30. MMSE normal as above Varicose veins/edema left lower extremity-venous duplex negative for any DVT. He was seen by vascular surgery who is recommending radiofrequency ablation of the left great saphenous vein. Some relief with compression stocks. MDD/generalized anxiety- PHQ-9 score 11, alvaro 7 score 8. As above ROS: see hpi EXAM: Constitutional - Awake and Alert, No apparent distress Eyes - PERRL Cardiovascular - S1S2, RRR, No edema Respiratory - Normal lung expansion, Normal respiratory effort, No respiratory distress, CTA bilaterally Extremities - no calf tenderness bilaterally, no swelling . Tortuous varicosities noted in the left lower leg Skin - Warm/Dry Neurological - Alert & oriented x3 Psychological - flat affect [facility] Medical History Cognitive impairment, mild, so stated Tubular adenoma Varicose veins of left lower extremity Infected epidermoid cyst Abscess of back History of COVID-19 Arthritis Right inguinal hernia Chronic right hip pain Surgical History History of rotator cuff surgery H/O colonoscopy (~12/06/20) History of right inguinal hernia repair History of hip surgery Social History Alcohol intake: never Patient Tobacco Use Status: Never used Tobacco Current occupational status: employed 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 1. Little interest or pleasure in doing things: nearly every day 2. Feeling down, depressed, or hopeless: not at all 3. Trouble falling or staying asleep, or sleeping too much: nearly every day 4. Feeling tired or having little energy: nearly every day 5. Poor appetite or overeating: not at all 6. Feeling bad about yourself - or that you are a failure or have let yourself or your family down: not at all 7. Trouble concentrating on things, such as reading the newspaper or watching television: several days 8. Moving or speaking so slowly that other people could have noticed. Or the opposite - being so fidgety or restless that you have been moving around a lot more than usual: more than half the days 9. Thoughts that you would be better off or of hurting yourself in some way: not at all Total score: 12 Depression Screening Interpretation: Positive Depression Screening Done: Yes 36001 - PHQ-9 Billing: Yes Source: Developed by Drs. Faraz Rodrigues, Claudette Hoang, Seth Malone and colleagues, with an educational bart from [employer]. Thrive Questionnaire Date Thrive assessed: 10/13/24 I am a: Patient What is your living situation today?: I have a steady place to live Within the past 12 months, did the food you bought not last and you didn't have the money to get more?: Never true Within the past 12 months, did you worry whether your food would run out before you got money to buy more?: Never true Do you have trouble paying for medicines?: No Do you have trouble getting transportation to medical appointments?: No Do you have trouble paying your heating and electricity bill?: No Do you have trouble taking care of your child, family member or friend?: No Do you have trouble with day-to-day activities such as bathing, preparing meals, shopping, managing finances, etc.?: No Are you currently unemployed and looking for a job?: No Are you interested in more education?: No Please select the resources that you would like help with: None THRIVE Score: 0 ALVARO-7 AMB Questionnaire ALVARO-7 Date ALVARO - 7 assessed: 10/13/24 Feeling nervous, anxious, or on edge: 1 = Several days Not being able to stop or control worryin = Not at all Worrying too much about different things: 1 = Several days Trouble relaxin = Several days Being so restless that it is hard to sit still: 1 = Several days Becoming easily annoyed or irritable: 2 = More than half the days Feeling afraid as if something awful might happen: 2 = More than half the days Total ALVARO-7 score (0-4 normal; 5-9 mild; 10-14 moderate; 15-21 severe): 8 Source: Developed by Drs. Faraz Rodrigues, Claudette Hoang, Seth Malone and colleagues, with an educational bart from [employer]. ALVARO-7 Assessment Billing ALVARO-7 Assessment Tool: ALVARO-7 Assessment 00508 Physical exam (Primary Care) Vital Signs: Last Vital Signs Temp 97.5 F 10/13/24 11:18 Pulse 77 10/13/24 11:18 Resp 14 10/13/24 11:18 BP 120/72 10/13/24 11:18 Pulse Ox 97 10/13/24 11:18 Oxygen Delivery Method Room Air 10/13/24 11:18 BMI result Body Mass Index 24.4 Tobacco/Smoking Status: Tobacco use Status Patient Tobacco Use Status Never used Tobacco 10/13/24 11:20 PHQ-9: PHQ-9 Score PHQ-9: Total score 12 10/13/24 12:03 Depression Screening Interpretation: Positive Thrive Assessment: Date of Thrive Assessment Date Thrive assessed 10/13/24 10/13/24 12:03 Coding Level of Care Code Est Pt Level 4 (41997) Diagnoses Depression with anxiety F41.8 Anomic dysphasia R48.8 Cognitive impairment, mild, so stated G31.84 Varicose veins of left lower extremity with inflammation I83.12 Varicose vein complication: inflammation Additional Codes PHQ-9 - 24483 - PHQ-9 Billing: Yes ([id number]) ALVARO-7 Assessment Billing - ALVARO-7 Assessment Tool: ALVARO-7 Assessment 94808 ([id number]) Assessment & Plan Assessment & Plan (1) Depression with anxiety: Code(s): F41.8 - Other specified anxiety disorders Category: Medical Plan: Discussed he can discontinue the sertraline which was ordered given his concerns for side effects. Recommend gradual discontinuation which was discussed. He will follow-up with psychiatry next month as scheduled. Reviewed PHQ-9 and alvaro 7 (2) Anomic dysphasia: Code(s): R48.8 - Other symbolic dysfunctions Category: Medical Plan: Ongoing. He will follow-up with psychiatry next month. Recommended he seek out counseling as discussed (3) Cognitive impairment, mild, so stated: Comment: mood related ? early ALzheimers Code(s): G31.84 - Mild cognitive impairment of uncertain or unknown etiology Category: Medical Plan: Possibly related to anxiety versus true cognitive impairment with early Alzheimer's based off of [place]. He will continue following with Neurology as well as Psychiatry as above (4) Varicose veins of left lower extremity: Code(s): I83.92 - Asymptomatic varicose veins of left lower extremity Category: Medical Qualifiers: Varicose vein complication: inflammation Qualified Code(s): I83.12 - Varicose veins of left lower extremity with inflammation Plan: Follow-up with Dr. Hartley. Last vascular surgery note reviewed Plan Follow-up in the office in 6 months for annual physical exam
[2024-10-13 11:18] VITALS: BP 120/72; PULSE 77; RESP 14; TEMP 36.4; O2SAT 97; BMI 24.4
== END 2024-10-13 11:59 | disposition home or self-care (01) ==
LOC: HO.HMCHD 11:03
PROVIDERS: Visit Provider Physician Assistant
DX: F41.8 Other specified anxiety disorders (principal); R48.8 Other symbolic dysfunctions; G31.84 Mild cognitive impairment of uncertain or unknown etiology; I83.12 Varicose veins of left lower extremity with inflammation

== ENCOUNTER → 2024-10-13 11:00 | Outpatient (BNVA) | payer BC, SELFPAY | PROVIDERS: Visit Provider Physician Assistant | DX: F41.8 Other specified anxiety disorders (principal); R48.8 Other symbolic dysfunctions; G31.84 Mild cognitive impairment of uncertain or unknown etiology; I83.12 Varicose veins of left lower extremity with inflammation | CPT/HCPCS: 96127 ==

== ENCOUNTER 2024-10-30 07:21 | Outpatient (AMB) | payer BC, SELFPAY ==
[2024-10-30 07:27] VITALS: BMI 24.4
--- NOTE | 2024-10-30 07:27 | A.OFFVIS_ITS ---
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 Accompanied by: Self / Same As Patient Allergies amoxicillin Allergy (Unknown, Verified 10/30/24 07:28) Unknown azithromycin Allergy (Unknown, Verified 10/30/24 07:28) Unknown naproxen Allergy (Unknown, Verified 10/30/24 07:28) Unknown Penicillins Allergy (Unknown, Verified 10/30/24 07:28) Unknown Z pack Allergy (Mild, Uncoded 10/30/24 07:28) Hives [facility] Medical History Cognitive impairment, mild, so stated Tubular adenoma Varicose veins of left lower extremity Infected epidermoid cyst Abscess of back History of COVID-19 Arthritis Right inguinal hernia Chronic right hip pain Surgical History History of rotator cuff surgery H/O colonoscopy (~12/06/20) History of right inguinal hernia repair History of hip surgery Social History Alcohol intake: never Patient Tobacco Use Status: Never used Tobacco Current occupational status: employed 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 Anesthesia: Local infiltration 5 cc, Tumescent 400 cc. Estimated Blood Loss: minimal Specimen: Varicose veins The patient was transferred to the procedure suite and the insufficient saphenous vein was mapped by ultrasound and diagrammed on the overlying skin. The depth and diameter of the vein(s) to be treated was documented. The varicose tributary veins and suitable access sites were identified and mapped as well. The patient was then positioned supine on the procedure table. The affected limb was prepped and draped in the usual sterile fashion. The RF catheter was placed on the sterile field, flushed and wiped down, prepared, and connected by a sterile cable. The patient was placed in supine position and local anesthesia was instilled in the skin overlying the access site. A skin incision was made overlying the identified and mapped great saphenous vein entry site. The vein was accessed using ultrasound guidance and the Seldinger technique, a guide wire was introduced through the needle, which was then exchanged over the guide wire for a 6F sheath, which was secured in place. The guide wire was removed and the sheath was flushed. The RF catheter was placed into the vein through the sheath and preferentially, imaging was used to place the catheter tip just inferior to the superficial epigastric vein to preserve normal physiological flow in that vein. Additionally, it was confirmed by ultrasound guidance that the catheter tip was also placed a minimum of 1.5cm distal to the saphenofemoral junction. After the RF catheter position was verified by ultrasound, tumescent anesthesia was infiltrated, under ultrasound guidance, precisely into the perivenous compartment along the entire length of vein from the entry site to the saphenofemoral junction until a halo of fluid was noted around the vein. The patient was then placed in supine position to further exsanguinate the superficial venous system. After RF catheter position was again confirmed with ultrasound imaging, and under direct external compression along the length of the heating element, RF energy was applied. The vein was segmentally ablated by heating a 8 cm segment and then indexing the catheter forward by 7.5 cm until the treatment length is completed. Device temperature was maintained at 120 plus or minus 5 degrees C with an initial power level of 40W dropping to below 20W for each treatment. Total vein length treated 40 cm Total cycles of RF 6. Repeat ultrasound of the saphenous vein was performed, confirming successful treatment. The catheter and sheath were withdrawn and hemostasis established with direct pressure. After assuring hemostasis, the skin incision over the saphenous vein was closed with a bandage and a compression wrap, and/ or graduated compression stocking was applied from the level of the foot to the most proximal level of the thigh. 62890 - Endovenous RF, 1st Vein All charges added?: Procedure code (CPT) selection complete Assessment & Plan Assessment & Plan (1) Varicose veins of left lower extremity with inflammation: Comment: 10/30/2024 - left great saphenous vein radiofrequency ablation Code(s): I83.12 - Varicose veins of left lower extremity with inflammation Category: Medical Plan: See op note Coding Level of Care Code Procedure Only Diagnoses Varicose veins of left lower extremity with inflammation I83.12 CPT Codes Details - Vascular 1: 97275 - Endovenous RF, 1st Vein ([id number])
== END 2024-10-30 08:26 | disposition home or self-care (01) ==
LOC: HO.HVS 07:22
PROVIDERS: Visit Provider Surgery Vascular Surgery
DX: I83.12 Varicose veins of left lower extremity with inflammation (principal)
CPT/HCPCS: 36475

== ENCOUNTER → 2024-10-30 07:21 | Outpatient (BNVA) | payer BC, SELFPAY | PROVIDERS: Visit Provider Surgery Vascular Surgery | DX: I83.12 Varicose veins of left lower extremity with inflammation (principal) | CPT/HCPCS: 36475; J2003; J2004 ==

== ENCOUNTER 2024-11-12 15:17 | Outpatient (AMB) | payer BC, SELFPAY ==
[2024-11-12 15:18] VITALS: BMI 24.4
--- NOTE | 2024-11-12 15:18 | MHC.OFFVIS ---
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 In general reports he has done fairly well. He does have some postprocedure phlebitis with some warmth erythema and tenderness throughout the ablated area. Reports he has been doing fairly well otherwise. He does have a cluster of varicosities in the left calf which have been a source of concern for him. In addition he does have some mild continued swelling. He now presents for routine follow-up. 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 Review of Systems Const Reports as per HPI ENT Reports no additional complaints Card Denies chest pain, Denies chest pain at rest and Denies chest pain with activity Resp Denies chest congestion and Denies cough GI Reports no additional complaints Musc Details: pain over varicosities, aching of lower extremities, swelling, cramping, heaviness and tiredness, itching Denies abnormal gait Skin/Breast Reports pruritus and Denies wounds Neuro Reports no additional complaints and Denies abnormal gait Psych Denies no additional complaints Physical Exam Vital Signs: BMI result Body Mass Index 24.4 Const General: cooperative, healthy appearing and comfortable Orientation/consciousness: oriented to person, oriented to place and oriented to time Neck Carotids: no bruits Chest Chest palpation & inspection: normal inspection of the chest and normal palpation of entire chest wall Resp Effort & Inspection: normal respiratory effort and able to speak in complete sentences Cardio Rate: regular rate Heart sounds: S1 normal heart sound present and S2 normal heart sound present Peripheral pulses: Peripheral pulses 2+ throughout GI Inspection: Yes normal to inspection Skin Other: +2 edema, large rope-like varicosities greater than 4 mm left calf CEAP Classification C4 - skin color changes Ep - Etiology Primary As - superficial veins P - reflux General skin exam: dry skin Neuro General: oriented to person, oriented to place and oriented to time Extrem Right lower extremity: full ROM, normal capillary refill and edema Left lower extremity: full ROM, normal capillary refill and edema Psych Mental Status: mental status grossly normal Assessment & Plan Assessment & Plan (1) Varicose veins of left lower extremity with inflammation: Comment: 10/30/2024 - left great saphenous vein radiofrequency ablation Code(s): I83.12 - Varicose veins of left lower extremity with inflammation Category: Medical Plan: In short patient has done extremely well status post left great saphenous vein ablation. He does have some residual varicosities in the left calf and also a refluxing small saphenous vein. We will plan for 1 month follow-up to consider microphlebectomy or left small saphenous vein ablation at that time. Thank you for allowing us to assist in his care. If there are any questions or concerns please do not hesitate to contact us Coding Level of Care Code Est Pt Level 3 (21535) Diagnoses Varicose veins of left lower extremity with inflammation I83.12
--- OUTSIDE RECORDS SUMMARY | 2024-11-12 16:37 | XMS_ITS | Patient Health Record ---
Author Organization [facility] Address [address] [place] [address] Care Team Providers Care Engraving Supervisor Name Role Phone Thomas (RETIRED) Alph[place] [...] Problem Status W/U Status Risk Notes Problem [id number] Colon cancer screening (Z12.11) Active confirmed Problem [id number] Personal history of colonic polyps (Z86.010) Active confirmed Problem [id number] Encounter for other preprocedural examination (Z01.818) Active confirmed Plan Of Treatment Future Test Test Name Order Date COLONOSCOPY 08/04/2015 COLONOSCOPY 09/21/2020 Insurance Providers Payer Name Payer Address Payer Phone Subscriber Number Group Number Insured Name Patient Relationship to Insured Coverage Start Date Coverage End Date [facility] [address] [place] [phone] [id number] BALWINDER HUTTON Self - patient is the insured Medical (General) History Medical History History ICD Code arthritis covid exposed feb 12 2020 hernia Surgical History Surgery Date(Month/Year) orthopedic pelvis and femur 2008
== END 2024-11-12 15:28 | disposition home or self-care (01) ==
LOC: HO.HVS 15:17
PROVIDERS: Visit Provider Surgery Vascular Surgery
DX: I83.12 Varicose veins of left lower extremity with inflammation (principal)
CPT/HCPCS: 99213

== ENCOUNTER 2024-12-10 15:12 | Outpatient (AMB) | payer BC, SELFPAY ==
--- NOTE | 2024-12-10 15:16 | MHC.OFFVIS ---
Intake Visit Reasons: follow up 1 mo leg check Intake Note: Patient presents for 1 month leg check. No complaints. Accompanied by: Self / Same As Patient Allergies amoxicillin Allergy (Unknown, Verified 12/10/24 15:18) Unknown azithromycin Allergy (Unknown, Verified 12/10/24 15:18) Unknown naproxen Allergy (Unknown, Verified 12/10/24 15:18) Unknown Penicillins Allergy (Unknown, Verified 12/10/24 15:18) Unknown Z pack Allergy (Mild, Uncoded 11/12/24 15:19) Hives [facility] HPI follow up 1 mo leg check: Details: Very pleasant 59-year-old gentleman presents for follow-up regarding left great saphenous vein ablation. He reports that he did fairly well after the procedure and has some swelling that is residual ends a cluster of varicosities in the left calf. He now presents for routine follow-up. He reports his legs doing fairly well pain and discomfort is well controlled. Now presents for re-evaluation of that left leg. 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 Review of Systems Const Reports as per HPI ENT Reports no additional complaints Card Denies chest pain, Denies chest pain at rest and Denies chest pain with activity Resp Denies chest congestion and Denies cough GI Reports no additional complaints Musc Details: pain over varicosities, aching of lower extremities, swelling, cramping, heaviness and tiredness, itching Denies abnormal gait Skin/Breast Reports pruritus and Denies wounds Neuro Reports no additional complaints and Denies abnormal gait Psych Denies no additional complaints Physical Exam Const General: cooperative, healthy appearing and comfortable Orientation/consciousness: oriented to person, oriented to place and oriented to time Neck Carotids: no bruits Chest Chest palpation & inspection: normal inspection of the chest and normal palpation of entire chest wall Resp Effort & Inspection: normal respiratory effort and able to speak in complete sentences Cardio Rate: regular rate Heart sounds: S1 normal heart sound present and S2 normal heart sound present Peripheral pulses: Peripheral pulses 2+ throughout GI Inspection: Yes normal to inspection Skin Other: +2 edema, large rope-like varicosities greater than 4 mm cluster in left calf CEAP Classification C4 - skin color changes Ep - Etiology Primary As - superficial veins P - reflux General skin exam: dry skin Neuro General: oriented to person, oriented to place and oriented to time Extrem Right lower extremity: full ROM, normal capillary refill and edema Left lower extremity: full ROM, normal capillary refill and edema Psych Mental Status: mental status grossly normal Results Reviewed Results Reviewed: Brief summary of venous insufficiency testing is as follows: right great saphenous vein: negative right small saphenous vein: negative right accessory vein: none present left great saphenous vein: Ablated left small saphenous vein: Paused left accessory vein: none present Please note there is no evidence of any venous aneurysms or significant tortuosity Assessment & Plan Assessment & Plan (1) Varicose veins of left lower extremity with inflammation: Comment: 10/30/2024 - left great saphenous vein radiofrequency ablation Code(s): I83.12 - Varicose veins of left lower extremity with inflammation Category: Medical Plan: In short patient has evidence of left lower extremity chronic venous insufficiency. He appears to be doing well after the great saphenous vein ablation. He does have some varicosities in the calf in addition to a refluxing left small saphenous vein. We did do a bedside ultrasound and it does appear to be amenable to Radiofrequency ablation. We did discuss this in detail. At the current time the patient would like to manage this conservatively. We did discuss routine conservative measures including compression elevation and exercise. He will follow up with us in approximately 6 months time to re-evaluate the possibility of left leg ablation of the small saphenous vein and or microphlebectomy. Thank you for allowing us to assist in his care. If there are any questions or concerns please do not hesitate to contact us Coding Level of Care Code Est Pt Level 4 (67644) Diagnoses Varicose veins of left lower extremity with inflammation I83.12
--- OUTSIDE RECORDS SUMMARY | 2024-12-10 17:56 | XMS_ITS | Patient Health Record ---
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 the day before the procedure; Duration: 1 day 09/21/2020 Active Immunizations Vaccine Route Administration Date Status Comme nts Influenza Unknown 09/21/2020 Refused Social History Alcohol Screen Question Answer Notes Did you have a drink containing alcohol in the p ast year? No Points 0 Interpretation Negative Problems Problem Type SNOMED Code ICD Code Onset Dates Problem Status W/U Status Risk Notes Problem Colon cancer screening (289017994) Colon cancer screening (Z12.11) Active confirmed Problem History of polyp of colon (situation) (976923182) Personal history of colonic polyps (Z86.010) Active confirmed Problem Pre-procedure evaluation check (500965688) Encounter for other preprocedural examination (Z01.818) Active confirmed Plan Of Treatment Future Test Test Name Order Date COLONOSCOPY 08/04/2015 COLONOSCOPY 09/21/2020 Insurance Providers Payer Name Payer Address Payer Phone Subscriber Number Group Number Insured Name Patient Relationship to Insured Coverage Start Date Coverage End Date [facility] [address] [facility] [place] [phone] [id number] BALWINDER HUTTON Self - patient is the insured Medical (General) History Medical History History ICD Code arthritis covid exposed feb 12 2020 hernia Surgical History Surgery Date(Month/Year) orthopedic pelvis and femur 2008
== END 2024-12-10 15:58 | disposition home or self-care (01) ==
LOC: HO.HVS 15:13
PROVIDERS: Visit Provider Surgery Vascular Surgery
DX: I83.12 Varicose veins of left lower extremity with inflammation (principal)
CPT/HCPCS: 99214